=== PATIENT | female | born 1970 | race Hispanic/Latino ===

== ENCOUNTER 2024-08-02 21:18 | Inpatient (IN) | payer SELFPAY ==
[~2024-08-02] VITALS: Ht 160 cm; Wt 183.7 kg
--- NOTE | 2024-08-02 21:22 | NUR ---
REPORT TO DIAMOND GUSTAFSON
[2024-08-02 21:49] LABS: BASOPHILS # (AUTO) 0.03 K/uL (0.00-0.20); BASOPHILS % (AUTO) 0.4 % (0.0-5.0); EOSINOPHILS # (AUTO) 0.15 K/uL (0.00-0.70); EOSINOPHILS % (AUTO) 2.1 % (0.0-8.0); HEMATOCRIT 47.1 % (36-48); IMMATURE GRANULOCYTE ABSOLUTE 0.04 K/uL (0-1); LYMPHOCYTES % (AUTO) 14.3 % (21.0-51.0); MEAN CORPUSCULAR HEMOGLOBIN 25.3 pg (27.0-33.0); MEAN CORPUSCULAR HGB CONC 28.7 g/dL (32.0-36.0); MEAN CORPUSCULAR VOLUME 88.4 fL (79-99); MONOCYTES # (AUTO) 0.5 K/uL (0.1-1.0); MONOCYTES % (AUTO) 6.8 % (3.0-13.0); NEUTROPHILS # (AUTO) 5.5 K/uL (1.8-7.7); NEUTROPHILS % (AUTO) 75.8 % (40.0-77.0); NUCLEATED RED BLOOD CELLS 0.6 % (0.0-0.19); PLATELET COUNT (AUTO) 199 K/uL (130-400); RED BLOOD CELL COUNT(AUTO) 5.33 MIL/uL (4.00-5.50); RED CELL DISTRIBUTION WIDTH 17.7 % (11.0-15.5); WHITE BLOOD COUNT (AUTO) 7.2 K/uL (4.8-10.8)
[2024-08-02 22:01] LABS: CREATININE 0.6 mg/dL (0.5-1.0); POTASSIUM 4.8 mmol/L (3.5-5.1)
[2024-08-02 22:16] LABS: APPEARANCE,URINE CLEAR (CLEAR); BILIRUBIN,URINE NEGATIVE (NEGATIVE); COLOR,URINE LIGHT-YELLOW (YELLOW); GLUCOSE, URINE (UA) NEGATIVE (NEGATIVE); KETONES,URINE NEGATIVE (NEGATIVE); LEUKOCYTE ESTERASE ,URINE NEGATIVE Leu/uL (NEGATIVE); NITRATE,URINE NEGATIVE (NEGATIVE); OCCULT BLOOD,URINE NEGATIVE (NEGATIVE); PROTEIN,URINE NEGATIVE (NEGATIVE); UROBILINOGEN,URINE 0.2 mg/dL (0.2-1.0)
[2024-08-02 22:22] LABS: B-TYPE NATRIURETIC PEPTIDE 78 pg/mL (0-100)
[2024-08-02] MEDS ORDERED: NITROGLYCERIN 0.4 MG SL TAB SL PRN (22:30)
[2024-08-02 22:31] LABS: ADD UA MICROSCOPIC NO
--- NOTE | 2024-08-02 22:44 | HMCIMG ---
CHEST 1VW HISTORY: Chest pain COMPARISON: None FINDINGS: A frontal projection of the chest was obtained. There are bilateral pulmonary infiltrates suggestive of pulmonary vascular congestion with possible superimposed pneumonitis. The study is limited due to patient's large body habitus. The heart is borderline enlarged. Degenerative changes are seen. No evidence of aortic calcification is seen. IMPRESSION: 1. Bilateral pulmonary infiltrates are seen suggestive of pulmonary vascular congestion with possible superimposed pneumonitis. Limited study due to patient's large body habitus.
[2024-08-02 22:54] LABS: ABG BASE EXCESS 7.9 mmol/L (-2.0-3.0); ABG HCO3 37.2 mmol/L (21.0-28.0); ABG OXYGEN SATURATION 94.3 % (94.0-98.0); ABG PCO2 74 mmHg (32-45); ABG PH 7.317 (7.350-7.450); DEVICE COMMENT LR ROLI RN; PO2, ARTERIAL BG 79.8 mmHg (83.0-108.0); VENT MODE, BG 3LNC (ROOM AIR)
--- NOTE | 2024-08-02 22:54 | HP ---
History of Present Illness Reason for Visit: cp History of Present Illness Ms. Colón is a 53-year-old female that was seen and examined today on 08/02/24. Patient is a good historian of personal health however right now she is on a BiPAP and the following information was provided by her daughter Paula who is a limited historian of patient's past medical problems. Patient states that she came to the emergency department with a chief complaint of chest pain. Onset was today at 8:00 a.m. shortly after dropping her son off at school. Location is [facility]. Duration is on and off. Character is described as pressure. There was no alleviating factors. There was no aggravating factors. Patient reports associated shortness of breath. Today in the emergency department CBC unremarkable, urinalysis unremarkable. CO2 42. Chest x-ray shows bilateral infiltrates. Emergency room physician recommended that patient be admitted with a diagnosis of chest pain. Past Medical History ADDITIONAL PAST MEDICAL HISTORY: [Sleep apnea] SOCIAL HISTORY: [Patient smokes one cigarette daily. Patient denies alcohol use. Patient denies drug use. Patient lives with her daughter Paula Gillespie. Patient is typically independent of all her ADLs. Patient denies difficulty paying her bills. Patient has poor access to health care due to lack of health insurance.] SURGICAL HISTORY: [Denies] Review of Systems General: No Fever, No Chills, No Night Sweats, No Fatigue, No Malaise, No Appetite, No Other HEENT: No Head Aches, No Visual Changes, No Eye Pain, No Ear Pain, No Dysphasia, No Sinus Congestion, No Post Nasal Drip, No Sore Throat, No Other Pulmonary: Dyspnea; No Cough, No Pleuritic Chest Pain, No Other Cardiovascular: Chest Pain; No: Palpitations, Orthopnea, Paroxysmal Noc. Dyspnea, Edema, Lt Headedness, Other Gastrointestinal: No: Nausea, Vomiting, Abdominal Pain, Diarrhea, Constipation, Melena, Hematochezia, Other Genitourinary: No Dysuria, No Frequency, No Incontinence, No Hematuria, No Retention, No Other Musculoskeletal: No: other, neck pain, shoulder pain, arm pain, back pain, hand pain, leg pain, foot pain Skin: No Urticaria, No Rash, No Other Neurological: No: Weakness, Numbness, Incoordination, Change in speech, Confusion, Seizures, Other Allergies: Coded Allergies: No Known Allergies (Unverified Allergy, Unknown, 08/02/24) Exam Vital Signs Vital Signs Date Time Temp Pulse Resp B/P (MAP) Pulse Ox O2 Delivery O2 Flow Rate FiO2 08/02/24 22:26 75 16 155/88 93 Nasal Cannula* 2 28 08/02/24 21:19 97.5 General Appearance: Alert, Oriented X3, Cooperative, moderate distress HEENT: Atraumatic, EOMI, Mucous membr. moist/pink Respiratory: Other (Bilateral rhonchi, positive tachypnea, diminished air entry to bilateral lower lobes) Cardiovascular: Regular rate, Regular rhythm, Normal S1, Normal S2 Abdominal: Normal bowel sounds, Soft, No tenderness Extremities: No edema Skin: No significant lesion Neuro: Normal speech, Strength at 5/5 X4 ext, Sensation intact, Cranial nerves 3-12 NL Psych/Mental Status: Mental status NL, Mood NL, Thoughts/Content NL Assessment/Plan ASSESSMENT: [ Chest pain, POA Pneumonia, POA Hypercapnia, POA, suspected hypercapnic respiratory failure] PLAN: [ Admit patient to medical floor as inpatient status. Place patient on telemetry monitoring. Consult pulmonology Service for evaluation and recommendations. BiPAP per pulmonology settings. Supplemental oxygen. Administer aspirin 162 mg by mouth times 1 dose Continue aspirin 81 mg by mouth once daily Nitropaste 0.5 inches anterior chest wall every 8 hours Trend troponin every 6 hours x 3 sets Supplemental oxygen to maintain O2 saturation greater than 92% Consult cardiology if any elevation in troponin or troponin uptrending DuoNebs every 6 hours Patient received Solu-Medrol 120 mg IV times. Continue Solu-Medrol at 40 mg IV every8 hours. Check respiratory culture, follow up with the results Empiric antibiotic therapy with doxycycline and Rocephin Keep patient NPO while on BiPAP Check patient for flu, RSV, strep, COVID, follow up with the results GI prophylaxis, famotidine DVT prophylaxis, Lovenox ]ADVANCED CARE PLANNING 1. Which of the following were discussed? Hospice Care - Yes Therapeutic options - Yes Advance Directives - Yes- patient states she does not have any advance directives in place at this time, however her daughter can make decisions for her if she becomes unable. Other discussions - patient wishes to remain a full code at this time 2. Discussed with who? Patient 3. Voluntary nature of this service was explained to the patient? Yes 4. Amount of time spent - ___ 16 minutes ___ 5. Reviewed by Physician? (if this service was performed by NPP) Yes This document was generated in part using voice recognition software, occasional wrong word or sound alike substitutions may have occurred due to the inherent limitations of voice recognition software. Read the chart carefully and recognize using context, where the substitutions have occurred. Although every effort was made to edit the content, biometrics specialist and typing errors may occur ATTESTATION BY PHYSICIAN I have seen and examined the patient. I reviewed the documentation, medical decision making, and treatment plan as noted by the mid-level provider above. I agree with the findings and plan of care. EUGENIA VENEGAS [facility] Aug 02, 2024 22:54
[2024-08-02] MEDS: IpraTROPium/alBUTERol SULFATE 3 ML SOLUTION IH ONE (22:57)
[2024-08-02 22:58] VITALS: PULSE 74; RESP 20
[2024-08-02] MEDS: Solu-medROL 125MG VIAL IVP ONE (23:05)
[2024-08-02] MEDS: furoSEMIDE 40MG VIAL IV ONE (23:05)
[2024-08-02 23:08] VITALS: PULSE 75; RESP 27; O2SAT 94
--- NOTE | 2024-08-02 23:22 | ERN ---
General Chief Complaint: Chest Pain Stated Complaint: CHEST PAIN, SOB Time Seen by MD: 21:20 History of Present Illness Initial Comments 53-year-old female came in for chest pain and shortness for breath. Patient otherwise has no concerns. Allergies: Coded Allergies: No Known Allergies (Unverified Allergy, Unknown, 08/02/24) Past Medical History Past Medical History: Diabetes-Type II, High Cholesterol, Hypertension, Other Medical History Other: MORBID OBESITY, OBSTRUCTIVE SLEEP APNEA, DYSURIA Past Surgical History: None ROS Dictation CONSTITUTIONAL: Negative except for HPI HEAD/FACE: Negative except for HPI EENT: Negative except for HPI RESPIRATORY: Negative except for HPI GASTROINTESTINAL/ABDOMINAL: Negative except for HPI GENITOURINARY: Negative except for HPI MUSCULOSKELETAL: Negative except for HPI INTEGUMENTARY: Negative except for HPI NEUROLOGICAL/PSYCH: Negative except for HPI HEMATOLOGIC/LYMPHATIC: Negative except for HPI All Systems Negative, Except as noted above. 13 point review of systems assessed and all negative except for above. Physical Exam Physical Exam Dictation Vital Signs reviewed General Appearance: Alert, oriented x 3, no acute distress, well developed, nourished. Head and Face: non-traumatic. Eyes: PERRL, pink conjunctivas, eyelid no trauma, anterior chamber with arcus senilis. Ears: Pinnas intact and no signs of trauma or erythema ear canals clear and no discharge TM no erythema Nose: No discharge, no bleeding. Oropharynx: Mouth normal, tongue pink, pharynx clear,no erythema, tonsils no exudates, no abscesses noted, mucous membrane moist Neck: Supple, non-tender, no thyromegaly, no masses, no JVD, no bruits Breast:Deferred Chest:No tenderness, no crepitus, no paradoxical movement, no retractions Lungs:Clear, well-ventilated, symmetric, no rales, no wheezing, no rhonchi, no stridor, good breath sounds bilaterally Heart: Regular rate, regular rhythm, no murmur, no gallops Vascular: no peripheral edema, Abdomen: Soft, positive bowel sounds, nondistended, no guarding, nontender, no rebound, no masses no hepatomegaly, no splenomegaly, no Rebolledo's sign, no hernias. Rectal: Deferred Genital: Deferred Neurological: Normal speech, motor function intact, sensory function intact Musculoskeletal: Neck nontender, full range of motion, back nontender, full range of motion, Extremities: nontender, full range of motion Skin: Color pink, dry, no turgor, no rash, no lacerations, no abrasions, no contusions. Lymphatic: Deferred Results Laboratory and Microbiology Lab and Micro Result Laboratory Tests Test 08/02/24 21:41 08/02/24 22:01 08/02/24 22:15 08/02/24 22:52 White Blood Count 7.2 K/uL (4.8-10.8) Red Blood Count 5.33 MIL/uL (4.00-5.50) Hemoglobin 13.5 g/dL (12.0-16.0) Hematocrit 47.1 % (36-48) Mean Corpuscular Volume 88.4 fL (79-99) Mean Corpuscular Hemoglobin 25.3 pg (27.0-33.0) L Mean Corpuscular Hemoglobin Concent 28.7 g/dL (32.0-36.0) L Red Cell Distribution Width 17.7 % (11.0-15.5) H Platelet Count 199 K/uL (130-400) Mean Platelet Volume 10.4 fL (7.5-10.5) Immature Granulocyte % (Auto) 0.6 % (0-1) Neutrophils (%) (Auto) 75.8 % (40.0-77.0) Lymphocytes (%) (Auto) 14.3 % (21.0-51.0) L Monocytes (%) (Auto) 6.8 % (3.0-13.0) Eosinophils (%) (Auto) 2.1 % (0.0-8.0) Basophils (%) (Auto) 0.4 % (0.0-5.0) Neutrophils # (Auto) 5.5 K/uL (1.8-7.7) Lymphocytes # (Auto) 1.0 K/uL (1.0-4.8) Monocytes # (Auto) 0.5 K/uL (0.1-1.0) Eosinophils # (Auto) 0.15 K/uL (0.00-0.70) Basophils # (Auto) 0.03 K/uL (0.00-0.20) Absolute Immature Granulocyte (auto 0.04 K/uL (0-1) Nucleated Red Blood Cells 0.6 % (0.0-0.19) H Red Blood Cell Morphology See comments Sodium Level 140 mmol/L (136-145) Potassium Level 4.8 mmol/L (3.5-5.1) Chloride Level 100 mmol/L (101-111) L Carbon Dioxide Level 42 mmol/L (21-32) *H Blood Urea Nitrogen 15 mg/dL (7-18) Creatinine 0.6 mg/dL (0.5-1.0) Glomerular Filtration Rate Calc 107 mL/min (>90) Random Glucose 116 mg/dL (70-105) H Total Calcium 8.5 mg/dL (8.5-10.1) Total Creatine Kinase 39 U/L (21-232) Troponin I High Sensitivity 11 ng/L (4-50) B-Type Natriuretic Peptide 78 pg/mL (0-100) Urine Color LIGHT-YELLOW (YELLOW) Urine Appearance CLEAR (CLEAR) Urine pH 7.0 (5.0-8.0) Urine Specific Cora 1.011 (1.001-1.031) Urine Protein NEGATIVE mg/dL (NEGATIVE) Urine Glucose (UA) NEGATIVE mg/dL (NEGATIVE) Urine Ketones NEGATIVE mg/dL (NEGATIVE) Urine Occult Blood NEGATIVE (NEGATIVE) Urine Nitrate NEGATIVE (NEGATIVE) Urine Bilirubin NEGATIVE mg/dL (NEGATIVE) Urine Urobilinogen 0.2 mg/dL (0.2-1.0) Urine Leukocyte Esterase NEGATIVE Mauricio/uL Troponin I < 0.05 ng/mL (0.00-0.05) Blood Gas Specimen Type Arterial Arterial Blood pH 7.317 (7.350-7.450) Arterial Blood Partial Pressure CO2 74 mmHg (32-45) *H Arterial Blood Partial Pressure O2 79.8 mmHg (83.0-108.0) L Arterial Blood HCO3 37.2 mmol/L (21.0-28.0) H Arterial Blood Oxygen Saturation 94.3 % (94.0-98.0) Arterial Blood Base Excess 7.9 mmol/L (-2.0-3.0) H Blood Gas Temperature 37.0 CELSIUS (35.5-37.0) Blood Gas Flow-by 3.00 L/min (0.00-15.00) Blood Gas Vent Mode 3LNC (ROOM AIR) FiO2 32.0 % Blood Gas Specimen Comment SHIVAM EDWARDS RN MDM MDM: Differential diagnosis: Rationale: Tests considered and ordered secondary to shared decision making include: Previous outside records reviewed: Old ER visits. Risk of complication and/or morbidity or mortality of patient management: None Medications-Per medication reconciliation Need for hospitalization: Patient does meet criteria for hospitalization. Need for emergency major/minor surgery: No There are no social concerns with this patient. Prescription drug management Prescriptions will include symptomatic care Patient's prior external medical records from other ER visits were reviewed by me as indicated. Prior testing and results from previous visits were reviewed. Prior tests were taken into account with medical decision making and resource utilization, independent historian/historians were used to obtain complete medical history. I independently interpreted the test that were performed, results were reviewed by me and considered findings on radiology if ordered. Medical management and examination interpretation discussions were had by me with other qualified healthcare professionals as indicated for the patient's care. ED Course Orders Procedure Category Date Status Time Vital Signs Per CPOE 08/02/24 Transmitted Routine 21:20 B-Type Natriuretic LAB 08/02/24 Complete Peptide 21:20 Chest 1vw RAD 08/02/24 Resulted 21:20 12 Lead Ekg Tracing- EKG 08/02/24 Logged Technical 21:20 Oxygen By Nc/Pulse Ox CPOE 08/02/24 Transmitted 21:20 Maintain Iv CPOE 08/02/24 Transmitted 21:20 Iv Insertion CPOE 08/02/24 Transmitted 21:20 Cardiac Monitoring CPOE 08/02/24 Transmitted 21:20 Pulse Oximetry With CPOE 08/02/24 Transmitted Vs And Prn 21:20 Cbc With Differential LAB 08/02/24 Complete 21:20 Activity: Br W/Brp CPOE 08/02/24 Transmitted With Assist 21:20 Creatine Kinase, Total LAB 08/02/24 Complete 21:20 Troponin I High LAB 08/02/24 Complete Sensitivity 21:20 Urinalysis Profile LAB 08/02/24 Complete 21:20 Troponin Poc Order LAB 08/02/24 Complete Only 21:20 Bedside Troponin-I LAB.ER 08/02/24 In Process (Poc) 21:20 Basic Metabolic Panel LAB 08/02/24 Complete 21:20 Ipratropium/Albuterol PHA 08/02/24 Complete Neb (Duoneb) 22:30 Methylprednisolone PHA 08/02/24 Complete Succ 125mg (Solu-Medr 22:30 Nitroglycerin 0.4mg PHA 08/02/24 In Process Sl Tab (Nitrostat) 22:30 Furosemide 40mg Vial PHA 08/02/24 Complete (Lasix 40mg Vial) 22:30 Arterial Blood Gas RT 08/02/24 Transmitted 22:20 Arterial Blood Gas LAB 08/02/24 Complete 22:52 Admit Orders ADM 08/02/24 Transmitted 22:51 Pulmonology Consult CONPHYSVC 08/02/24 Transmitted 22:51 Current Medications Medications (Trade) Dose Ordered Sig/Kiet Route PRN Reason Start Time Stop Time Status Last Admin Dose Admin Albuterol (DUOneb) 1 UDVIAL ONCE ONCE IH 08/02/24 22:30 08/02/24 22:31 DC 08/02/24 22:57 Furosemide (LASix 40MG VIAL) 40 mg ONCE ONCE IV 08/02/24 22:30 08/02/24 22:31 DC 08/02/24 23:05 Methylprednisolone Sodium Succinate (Solu-medROL 125MG) 120 mg ONCE ONCE IVP 08/02/24 22:30 08/02/24 22:31 DC 08/02/24 23:05 Nitroglycerin (Nitrostat) 0.4 mg AD PRN SL CHEST PAIN 08/02/24 22:30 09/01/24 22:29 Vital Signs Date Time Temp Pulse Resp B/P (MAP) Pulse Ox O2 Delivery O2 Flow Rate FiO2 08/02/24 23:08 75 27 40 08/02/24 22:58 74 20 08/02/24 22:26 75 16 155/88 93 Nasal Cannula* 2 28 08/02/24 21:19 97.5 87 30 162/96 84 Room Air DX & DISP Disposition: Inpatient Departure Impression: Primary Impression: CHF exacerbation Condition: Stable Referrals: ROSINA WILSON M.D. (PCP) ADRIANA HUYNH MD Aug 02, 2024 23:22
[2024-08-02 23:41] VITALS: PULSE 80; RESP 30; O2SAT 95
[2024-08-02] MEDS ORDERED: morPHINE 2 MG SYG IVP PRN (23:45)
[2024-08-02] MEDS: LACTATED RINGERS 1000ML 1,000 ML IV SCH (23:50)
[2024-08-02] MEDS: ASPIRIN 81MG CHEW TAB PO ONE (23:59)
[2024-08-02] MEDS: DOXYCYCLINE 100MG+NS 250ML 250 ML IV SCH (23:59)
[2024-08-02] MEDS: NITROGLYCERIN 1GM OINT 1 INCH/1GM TD SCH (23:59)
[2024-08-02] MEDS: cefTRIAXone 1G VIAL IVPB SCH (23:59)
[2024-08-03] VITALS (8 sets, daily range): PULSE 79–100; RESP 19–32; O2SAT 94–97
[2024-08-03] MEDS ORDERED: ondanSETRON 4MG INJ IV PRN
[2024-08-03] MEDS ORDERED: hydrALAZine 20MG/ML VIAL IV PRN
[2024-08-03] MEDS: IpraTROPium/alBUTERol SULFATE 3 ML SOLUTION IH SCH (00:28)
[2024-08-03] MEDS: Solu-medROL 40MG VIAL IVP SCH (05:06)
[2024-08-03 05:16] LABS: RAPID GROUP A STREP negative (NEGATIVE)
[2024-08-03 05:22] LABS: SARS-CoV-2, RNA, NAAT NEGATIVE SARS CoV-2 (NEGATIVE)
[2024-08-03 05:26] LABS: INFLUENZA TYPE A Negative For Type A (NEGATIVE); INFLUENZA TYPE B Negative For Type B (NEGATIVE)
[2024-08-03] MEDS: SODIUM CHLORIDE 3% FOR INHALATION 4 ML/AMP VIAL.NEB IH ONE (06:58)
--- NOTE | 2024-08-03 07:00 | NUR ---
REPORT RECEIVED FROM SHI GUSTAFSON
[2024-08-03 07:15] LABS: BASOPHILS # (AUTO) 0.02 K/uL (0.00-0.20); BASOPHILS % (AUTO) 0.3 % (0.0-5.0); EOSINOPHILS # (AUTO) 0.01 K/uL (0.00-0.70); EOSINOPHILS % (AUTO) 0.1 % (0.0-8.0); HEMATOCRIT 49.1 % (36-48); IMMATURE GRANULOCYTE ABSOLUTE 0.12 K/uL (0-1); LYMPHOCYTES # (AUTO) 0.4 K/uL (1.0-4.8); MEAN CORPUSCULAR HEMOGLOBIN 25.2 pg (27.0-33.0); MEAN CORPUSCULAR HGB CONC 28.5 g/dL (32.0-36.0); MEAN CORPUSCULAR VOLUME 88.3 fL (79-99); MONOCYTES # (AUTO) 0.1 K/uL (0.1-1.0); MONOCYTES % (AUTO) 1.2 % (3.0-13.0); NEUTROPHILS # (AUTO) 6.7 K/uL (1.8-7.7); NEUTROPHILS % (AUTO) 91.7 % (40.0-77.0); NUCLEATED RED BLOOD CELLS 0.7 % (0.0-0.19); PLATELET COUNT (AUTO) 196 K/uL (130-400); RED BLOOD CELL COUNT(AUTO) 5.56 MIL/uL (4.00-5.50); RED CELL DISTRIBUTION WIDTH 17.4 % (11.0-15.5); WHITE BLOOD COUNT (AUTO) 7.3 K/uL (4.8-10.8)
--- NOTE | 2024-08-03 07:31 | EKG ---
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
[2024-08-03 07:47] LABS: CREATININE 0.6 mg/dL (0.5-1.0); PHOSPHORUS 4.6 mg/dL (2.5-4.9); POTASSIUM 4.8 mmol/L (3.5-5.1)
--- NOTE | 2024-08-03 08:10 | NUR ---
ASSESSMENT: PT FOUND AWAKE AND ALERT. THERE IS FAMILY AT THE BEDSIDE. SHE CURRENTLY HAS A BIPAP MACHINE. NO USE OF ACCESSORY MUSCLES OR STERNAL RETRACTIONS NOTED. CARDIO/PULMONARY: PT LSCTA TO UPPER LOBES AND VERY DIMINISHED BILATERALLY TO BASES. PT STATES SHE FEELS BETTER THAN WHEN SHE FIRST ARRIVED AND THAT THE BIPAP IS HELPING. OXYGEN SATS ON CURRENT SETTINGS ARE >94%. CAP REFILL LESS THAN 3 SECONDS. NO CYANOSIS NOTED TO NAIL BEDS ON HANDS/TOES. PT DENIES CP. S1S2 AUSCULTATED APICALLY. 2+ PULSES TO BILATERAL RADIAL/DORSALIS PEDAL SITES. 1+ EDEMA NOTED TO LE'S BILATERALLY. SINUS RHYTHM ON MANAGER LICENSING. NEURO: PT A/O X 3. PT ABLE TO FOLLOW SIMPLE/COMPLEX COMMANDS. [employer] 15 AND PT OTHERWISE NEUROLOGICALLY INTACT. GI/: PT MORBIDLY OBESE SO UNABLE TO ASSESS BOWEL SOUNDS ACCURATLY. + FOR DISTANT BOWEL SOUNDS. ABD SOFT TO PALPATION AND PT DENIES ANY CURRENT BOWEL ISSUES. PT CURRENTLY NPO D/T BIPAP AND RESPIATORY STATUS. UNABLE TO ACCESS ACCURATELY FOR BLADDER DISTENTION. PT CURRENTLY HAS A URINARY DEVICE (PURWICK). URINE IS YELLOW IN COLOR. MUSCULOSKELETAL/INTEGUMENTARY: PT CURRENTLY LIMITED ON HER RANGE OF MOTION D/T CURRENT CONDITION. SKIN INTACT OF WHAT IS VISIBLE. UNABLE TO ASSESS BENEATH "SKIRT"/SKIN FOLDS AT THIS TIME OR ASSESS HER BUTTOCKS/PERIANAL AREA.
--- NOTE | 2024-08-03 08:15 | NUR ---
BIPAP SETTINGS: IPAP 12 EPAP 6 RATE 18 FIO2 40%
--- NOTE | 2024-08-03 09:01 | PN ---
[facility] PROGRESS NOTE Date of Service: Aug 03, 2024 Time of Service: 08:53 SUBJECTIVE: Patient remains on BiPAP overnight. Pending repeat ABG REVIEW OF SYSTEMS CONSTITUTIONAL: Denies fevers, chills, or night sweats. No unintentional weight loss reported. NEUROLOGICAL: Denies headache, amaurosis fugax, motor weakness, sensory deficit, vertigo/spinning sensation, gait abnormalities, or tremors. ENT: No hearing loss, otalgia, otorrhea, rhinitis, rhinorrhea, hoarseness, or sore throat. CARDIOVASCULAR: Denies any exertional angina, dyspnea on exertion, orthopnea, paroxysmal nocturnal dyspnea, palpitations, life-threatening arrhythmias, claudication. PULMONARY: Denies any shortness of breath, cough, phlegm/sputum, hemoptysis, pleuritic chest pain. SLEEP: Denies morning headaches, daytime somnolence or napping. Denies difficulty falling asleep, staying asleep, waking from sleep. Denies knowledge of snoring. GASTROINTESTINAL: Denies any type of dysphagia to either liquids or solids. Denies nausea, vomiting, pyrosis, early satiety, abdominal pain, diarrhea, constipation, or changes in stool consistency or caliber. Denies coffee-ground emesis, hematemesis, hematochezia, or melanotic stools. GENITOURINARY: Denies frequency, urgency, nocturia, hematuria or incontinence (Storage/Irritative symptoms.) Low urinary stream, straining to void, urinary intermittency or hesitancy, splitting of the voiding stream, terminal dribbling. ENDOCRINOLOGIC: Denies polyuria, polydipsia, polyphagia or heat/cold intolerances. HEMATOLOGIC: Denies thrombophilia/previous clots, or coagulopathy/bleeding disorders. ONCOLOGIC: Denies personal history of malignancy. DERMATOLOGIC: Denies rashes or pruritus. PSYCHIATRIC: Denies any suicidal or homicidal ideation. Denies hallucinations. PHYSICAL EXAM GENERAL APPEARANCE: The patient is awake, alert, and oriented, in no acute cardiopulmonary distress. NEUROLOGICAL: Cranial nerves II-XII grossly intact. Motor is 5/5 in bilateral upper and lower extremities proximal to distal. No sensory deficits. HEENT: Face is symmetric. Pupils are equal and reactive. Extraocular movements are intact. NECK: Supple. No JVD. No thyromegaly. No submental, submandibular, pre- /postauricular, occipital or supraclavicular lymphadenopathy. CHEST: Normal chest expansion. No Telemetry. LUNGS: Absence of any rales, rhonchi or any wheezing. CARDIOVASCULAR: Regular. S1 and S2 normal. No appreciable rubs, murmurs or gallops. ABDOMEN: Soft, nontender, and nondistended. There is no rebound, voluntary guarding, or rigidity. : Deferred. No Palacio. EXTREMITIES: Non-edematous and not cyanotic. No clubbing. Good capillary refill. SKIN: No skin breakdown. Vital Signs (last 8hr) Date Time Temp Pulse Resp B/P (MAP) Pulse Ox O2 Delivery O2 Flow Rate FiO2 08/03/24 07:04 94 28 08/03/24 06:14 82 22 155/87 94 Bi-PAP+ 40 08/03/24 05:20 79 22 112/51 95 Bi-PAP+ 40 08/03/24 04:18 81 24 119/41 95 Bi-PAP+ 40 08/03/24 03:12 75 22 143/65 75 Bi-PAP+ 40 08/03/24 02:03 82 22 135/61 Bi-PAP+ 40 08/03/24 01:00 80 24 142/75 95 Bi-PAP+ 40 LABS: Laboratory: Test 08/03/24 06:34 08/03/24 04:50 08/02/24 22:52 08/02/24 22:15 Range/Units White Blood Count 7.3 4.8-10.8 K/uL Red Blood Count 5.56 H 4.00-5.50 MIL/uL Hemoglobin 14.0 12.0-16.0 g/dL Hematocrit 49.1 H 36-48 % Mean Corpuscular Volume 88.3 79-99 fL Mean Corpuscular Hemoglobin 25.2 L 27.0-33.0 pg Mean Corpuscular Hemoglobin Concent 28.5 L 32.0-36.0 g/dL Red Cell Distribution Width 17.4 H 11.0-15.5 % Platelet Count 196 130-400 K/uL Mean Platelet Volume 10.5 7.5-10.5 fL Immature Granulocyte % (Auto) 1.7 H 0-1 % Neutrophils (%) (Auto) 91.7 H 40.0-77.0 % Lymphocytes (%) (Auto) 5.0 L 21.0-51.0 % Monocytes (%) (Auto) 1.2 L 3.0-13.0 % Eosinophils (%) (Auto) 0.1 0.0-8.0 % Basophils (%) (Auto) 0.3 0.0-5.0 % Neutrophils # (Auto) 6.7 1.8-7.7 K/uL Lymphocytes # (Auto) 0.4 L 1.0-4.8 K/uL Monocytes # (Auto) 0.1 0.1-1.0 K/uL Eosinophils # (Auto) 0.01 0.00-0.70 K/uL Basophils # (Auto) 0.02 0.00-0.20 K/uL Absolute Immature Granulocyte (auto 0.12 0-1 K/uL Nucleated Red Blood Cells 0.7 H 0.0-0.19 % White Cell Morphology Comment See comments Sodium Level 137 136-145 mmol/L Potassium Level 4.8 3.5-5.1 mmol/L Chloride Level 97 L 101-111 mmol/L Carbon Dioxide Level 40 *H 21-32 mmol/L Blood Urea Nitrogen 12 7-18 mg/dL Creatinine 0.6 0.5-1.0 mg/dL Glomerular Filtration Rate Calc 107 >90 mL/min Random Glucose 124 H 70-105 mg/dL Total Calcium 8.6 8.5-10.1 mg/dL Phosphorus Level 4.6 2.5-4.9 mg/dL Magnesium Level 2.00 1.80-2.40 mg/dL Troponin I High Sensitivity 7 4-50 ng/L Influenza Type A Antigen Negative For Type A NEGATIVE Influenza Type B Antigen Negative For Type B NEGATIVE SARS-CoV-2, RNA, NAAT NEGATIVE SARS CoV-2 NEGATIVE Group A Streptococcus Rapid negative NEGATIVE Blood Gas Specimen Type Arterial Arterial Blood pH 7.317 L 7.350-7.450 Arterial Blood Partial Pressure CO2 74 *H 32-45 mmHg Arterial Blood Partial Pressure O2 79.8 L 83.0-108.0 mmHg Arterial Blood HCO3 37.2 H 21.0-28.0 mmol/L Arterial Blood Oxygen Saturation 94.3 94.0-98.0 % Arterial Blood Base Excess 7.9 H -2.0-3.0 mmol/L Blood Gas Temperature 37.0 35.5-37.0 CELSIUS Blood Gas Flow-by 3.00 0.00-15.00 L/min Blood Gas Vent Mode 3LNC ROOM AIR FiO2 32.0 % Blood Gas Specimen Comment LR GRACE GUSTAFSON Troponin I < 0.05 0.00-0.05 ng/mL Test 08/02/24 22:01 08/02/24 21:41 Range/Units Urine Color LIGHT-YELLOW YELLOW Urine Appearance CLEAR CLEAR Urine pH 7.0 5.0-8.0 Urine Specific [place] 1.011 1.001-1.031 Urine Protein NEGATIVE NEGATIVE mg/dL Urine Glucose (UA) NEGATIVE NEGATIVE mg/dL Urine Ketones NEGATIVE NEGATIVE mg/dL Urine Occult Blood NEGATIVE NEGATIVE Urine Nitrate NEGATIVE NEGATIVE Urine Bilirubin NEGATIVE NEGATIVE mg/dL Urine Urobilinogen 0.2 0.2-1.0 mg/dL Urine Leukocyte Esterase NEGATIVE NEGATIVE Mauricio/uL Red Blood Cell Morphology See comments Total Creatine Kinase 39 21-232 U/L B-Type Natriuretic Peptide 78 0-100 pg/mL Current Medications Medications (Trade) Dose Ordered Sig/Kiet Route PRN Reason Start Time Stop Time Status Last Admin Dose Admin Acetaminophen (TYLenol 325MG TAB) 650 mg Q6H PRN PO TEMPERATURE GREATER THAN 101.5 08/03/24 00:00 09/02/24 00:00 Albuterol (DUOneb) 1 UDVIAL [id number] IH 08/03/24 00:00 09/02/24 00:00 08/03/24 06:58 1 UDVIAL Aspirin (Aspirin 81mg Ec Tab) 81 mg DAILY PO 08/03/24 09:00 09/02/24 08:59 Ceftriaxone Sodium (ROCEphine 1G INJ) 1 gm Q24H IVPB 08/03/24 00:00 08/13/24 00:00 08/02/24 23:59 1 GM Doxycycline Hyclate 250 ml @ 125 mls/hr Q12H IV 08/03/24 00:00 08/13/24 00:00 08/02/24 23:59 125 MLS/HR Enoxaparin Sodium (Lovenox) 40 mg DAILY SQ 08/03/24 09:00 09/02/24 08:59 Famotidine (Pepcid 20mg Tab) 20 mg DAILY PO 08/03/24 09:00 09/02/24 08:59 Hydralazine HCl (APRESOLine 20MG INJ) 10 mg Q6H PRN IV For:SBP above 160;DBP above 90 08/03/24 00:00 09/02/24 00:00 Lactated Ringer's 1,000 ml @ 75 mls/hr [id number] IV 08/03/24 00:00 09/02/24 00:00 08/02/24 23:50 75 MLS/HR Methylprednisolone Sodium Succinate (Solu-medROL 40MG) 40 mg Q8H IVP 08/03/24 06:00 09/02/24 05:59 08/03/24 05:06 40 MG Morphine Sulfate (morPHINE 2MG SYG) 2 mg Q4H PRN IVP SEVERE PAIN (7-10) 08/02/24 23:45 08/09/24 23:44 Nitroglycerin (Nitroglycerin 1gm Oint) 0.5 inch Q8H TD 08/03/24 00:00 09/02/24 00:00 08/02/24 23:59 0.5 INCH Nitroglycerin (Nitrostat) 0.4 mg AD PRN SL CHEST PAIN 08/02/24 22:30 09/01/24 22:29 Ondansetron HCl (zoFRAN 4MG INJ) 4 mg Q6H PRN IV NAUSEA/VOMITING 08/03/24 00:00 09/02/24 00:00 DIAGNOSTICS / RADIOLOGY: [ ] ASSESSMENT: Acute on chronic hypercarbic/hypoxemic respiratory failure, POA Obesity hypoventilation syndrome, POA Chest pain, POA Pneumonia, POA PLAN: Continue Ceftriaxone and doxy Trend WBCs Follow-up cultures continue BiPAP now Repeat ABG O2 nasal cannula as needed we will consider consulting Pulmonary Monitor blood pressure NPO while on BiPAP No need for GI prophylaxis No need for IV fluids Trend a.m. BMP Replete electrolytes as necessary DVT prophylaxis with Lovenox Trend a.m. CBC Full code Case was discussed with patient's nurse at bedside Attention time greater than 30 minutes MERCY SANTACRUZ IV, MD Aug 03, 2024 09:01
[2024-08-03 09:56] LABS: ABG BASE EXCESS 3.6 mmol/L (-2.0-3.0); ABG HCO3 32.7 mmol/L (21.0-28.0); ABG PCO2 71 mmHg (32-45); ABG PH 7.283 (7.350-7.450); DEVICE COMMENT RBJESSE; PO2, ARTERIAL BG 66.3 mmHg (83.0-108.0); VENT MODE, BG BIPAP 12-6 (ROOM AIR)
[2024-08-03] MEDS: FAMOTIDINE 20MG TAB PO SCH (10:12)
[2024-08-03] MEDS: ASPIRIN 81 MG EC TAB PO SCH (10:12)
[2024-08-03] MEDS: ENOXAPARIN SODIUM 40 MG/0.4 ML SYRINGE SQ SCH (10:13)
--- NOTE | 2024-08-03 10:17 | NUR ---
ABG RESUTLS: I SENT DR LUU THE ABG RESUTLS AND HE ASKED FOR BIPAP CHANGES
--- NOTE | 2024-08-03 10:17 | NUR ---
BIPAP CHANGES: WE ARE TO INCREASE RATE FROM 18 TO 22. [facility] MACHINE OPERATOR WAS INFORMED.
--- NOTE | 2024-08-03 14:42 | NUR ---
DCP Patient on BiPap and Polish speaking. Rivera Gillespie, Son [phone] provided information for patient. Patient lives in a mobile home with a four steps at entrance and a tub. Patient is unemployed, remains independent and drives self. States able to complete ADL's on her own; uses a shopping scooter while shopping. Denies home health services, home care providers or dialysis. PCP - Racheal Chatman MD Pharmacy - [facility]. Upon discharge, Paula Gillespie, Daughter [phone] and family will assist with care as needed. Provided Community Resources List. Addendum: 08/03/24 at 1450 by MOHAN SARABIA RN CM Amended: Links added.
--- NOTE | 2024-08-03 19:16 | NUR ---
trans care to [facility]
--- NOTE | 2024-08-03 23:04 | CONS ---
[facility] CONSULTATION NOTE Date Patient Seen: Aug 03, 2024 Time of Visit: 22:58 Supervising Physician: TASNEEM DOWD MD Reason for Consultation: DYSPNEA Primary Care Physician: [ ] Outpatient Specialists: [ ] Inpatient Consults: [ ] PROBLEM LIST: Acute hypercarbic, hypoxemic respiratory failure on admission Severe morbid obesity, BMI 85.8 Obesity hypoventilation syndrome Obstructive sleep apnea Tobacco use disorder Chest pain on admission Hypertension HPI: 53 years old woman presents to the ER complaining of chest pain of acute onset Denies diaphoresis, denies radiating pain to the neck or shoulders Patient also complaining of cough, congestion and dyspnea on exertion On arrival, patient presented with tachypnea and hypoxemia Marked hypercarbia and had to be placed on BiPAP She is feeling better now, but remains on BiPAP while evaluated in the ED no cough, no congestion no fevers, no chills complains of fatigue and weakness PAST MEDICAL HX: Severe morbid obesity, hypertension, OHS, ANGELO PAST SURGICAL HX: noncontributory SOCIAL HISTORY: Tobacco use disorder Coded Allergies: No Known Allergies (Unverified Allergy, Unknown, 08/02/24) REVIEW OF SYSTEMS: 12 point ROS reviewed with patient. Pertinent positives mentioned above. Otherwise negative. PHYSICAL EXAM: GENERAL: alert, weak, awake oriented x 3 HEENT: EOMI, Sclera non icteric, moist mucosa NECK: Supple, no JVD, trachea midline LUNGS: expiratory wheezing, crackles and decreased air entry bilaterally HEART: Regular rate and rhythm. Normal S1 and S2, without murmurs ABD: Abdomen soft, nontender. Bowel sounds present EXT: No clubbing cyanosis or edema NEURO: Alert and oriented to person, follows commands Vital Signs (last 8hr) Date Time Temp Pulse Resp B/P (MAP) Pulse Ox O2 Delivery O2 Flow Rate FiO2 08/03/24 21:49 87 22 127/74 96 Bi-PAP+ 40 08/03/24 21:46 83 27 40 08/03/24 19:29 81 30 08/03/24 19:25 98.2 96 28 131/78 96 Bi-PAP+ 40 08/03/24 18:20 98.8 89 22 131/78 92 Bi-PAP+ 40 08/03/24 18:00 81 30 40 08/03/24 16:29 99.0 84 22 141/75 94 Bi-PAP+ 40 LABS: Hematology Labs: Test 08/03/24 06:34 08/02/24 21:41 Range/Units White Blood Count 7.3 4.8-10.8 K/uL Red Blood Count 5.56 H 4.00-5.50 MIL/uL Hemoglobin 14.0 12.0-16.0 g/dL Hematocrit 49.1 H 36-48 % Mean Corpuscular Volume 88.3 79-99 fL Mean Corpuscular Hemoglobin 25.2 L 27.0-33.0 pg Mean Corpuscular Hemoglobin Concent 28.5 L 32.0-36.0 g/dL Red Cell Distribution Width 17.4 H 11.0-15.5 % Platelet Count 196 130-400 K/uL Mean Platelet Volume 10.5 7.5-10.5 fL Immature Granulocyte % (Auto) 1.7 H 0-1 % Neutrophils (%) (Auto) 91.7 H 40.0-77.0 % Lymphocytes (%) (Auto) 5.0 L 21.0-51.0 % Monocytes (%) (Auto) 1.2 L 3.0-13.0 % Eosinophils (%) (Auto) 0.1 0.0-8.0 % Basophils (%) (Auto) 0.3 0.0-5.0 % Neutrophils # (Auto) 6.7 1.8-7.7 K/uL Lymphocytes # (Auto) 0.4 L 1.0-4.8 K/uL Monocytes # (Auto) 0.1 0.1-1.0 K/uL Eosinophils # (Auto) 0.01 0.00-0.70 K/uL Basophils # (Auto) 0.02 0.00-0.20 K/uL Absolute Immature Granulocyte (auto 0.12 0-1 K/uL Nucleated Red Blood Cells 0.7 H 0.0-0.19 % White Cell Morphology Comment See comments Red Blood Cell Morphology See comments Chemistry Labs: Test 08/03/24 16:08 08/03/24 10:38 08/03/24 06:34 08/02/24 22:15 Range/Units Troponin I High Sensitivity 6 4-50 ng/L Lactic Acid Level 1.0 0.8-2.5 mmol/L Sodium Level 137 136-145 mmol/L Potassium Level 4.8 3.5-5.1 mmol/L Chloride Level 97 L 101-111 mmol/L Carbon Dioxide Level 40 *H 21-32 mmol/L Blood Urea Nitrogen 12 7-18 mg/dL Creatinine 0.6 0.5-1.0 mg/dL Glomerular Filtration Rate Calc 107 >90 mL/min Random Glucose 124 H 70-105 mg/dL Total Calcium 8.6 8.5-10.1 mg/dL Phosphorus Level 4.6 2.5-4.9 mg/dL Magnesium Level 2.00 1.80-2.40 mg/dL Troponin I < 0.05 0.00-0.05 ng/mL Test 08/02/24 21:41 Range/Units Total Creatine Kinase 39 21-232 U/L B-Type Natriuretic Peptide 78 0-100 pg/mL DIAGNOSTICS / RADIOLOGY RESULTS: Left lower lobe atelectasis with air bronchogram of the left lung base cons istent with pneumonia. Small left effusion. PLAN - continue on BiPAP - continue on oxygen - keep O2 saturation at 88% or higher - IV steroids - IV antibiotics - Aerosol nebulizer treatments NEURO: Minimize central acting medications as possible. Maintain fall precautions, adequate lighting during the day PULMONARY: Supplemental 02 as needed. Maintain aspiration precautions at all times CARDIOVASCULAR: Follow hemodynamics. Vital signs per facility protocol GI & NUTRITION: Continue with nutritional support. Continue stool softeners and laxatives as needed. KIDNEYS & ELECTROLYTES: Strict monitoring of intake, output and overall fluid balance. Avoid nephrotoxic medications to the extent possible. Medications to be dosed according to renal function. Monitor electrolytes and replace as needed ENDOCRINE: Maintain blood glucose between 100-180 at all times. Hypoglycemia protocol in place INFECTIOUS DISEASE: Trend temperature, WBC and procalcitonin level Follow cultures, deescalate antibiotics as soon as possible. Panculture if new onset fever ONCOLOGY/HEMATOLOGY/COAGULATION: Monitor for s/s of bleeding Monitor hemoglobin, coagulation studies as needed SKIN: Pressure ulcer prevention per facility protocol Specialty mattress ORTHO/REHAB: Continue PT/OT Prophylaxis: Continue GI and DVT prophylaxis Code Status: Full Resuscitation Disposition: TBD Other: Total patient care time exceeds 35 minutes excluding all procedures. Consult note scribed by Oli Carrizales on my behalf and I can attest to the accuracy of the note. I personally scribed for TASNEEM DOWD MD ([email or web address]) on 08/03/24 at 23:04. Electronically submitted by Oli Carrizales ([email or web address]). TASNEEM DOWD MD Aug 03, 2024 23:04
[2024-08-04] VITALS (10 sets, daily range): BP systolic 113–130; BP diastolic 71–77; PULSE 71–88; RESP 18–25; TEMP 97.5–98.8; O2SAT 94–96
[2024-08-04 12:17] LABS: ABG BASE EXCESS 11.6 mmol/L (-2.0-3.0); ABG HCO3 39.1 mmol/L (21.0-28.0); ABG OXYGEN SATURATION 81.9 % (94.0-98.0); ABG PCO2 65 mmHg (32-45); ABG PH 7.401 (7.350-7.450); CARBON MONOXIDE 1.7 % (0.5-1.5); DEVICE COMMENT RR RN; HHb 17.8; VENT MODE, BG 4LNC (ROOM AIR)
[2024-08-04] MEDS: SODIUM CHLORIDE 3% FOR INHALATION 4 ML/AMP VIAL.NEB IH ONE ×2 (14:10→19:16)
--- NOTE | 2024-08-04 14:28 | PN ---
[facility] PROGRESS NOTE Date of Service: Aug 04, 2024 Time of Service: 14:16 SUBJECTIVE: Has been transitioned to nasal cannula. She was saturating well. No new complaints or concerns. No acute events reported overnight. REVIEW OF SYSTEMS CONSTITUTIONAL: Denies fevers, chills, or night sweats. No unintentional weight loss reported. NEUROLOGICAL: Denies headache, amaurosis fugax, motor weakness, sensory deficit, vertigo/spinning sensation, gait abnormalities, or tremors. ENT: No hearing loss, otalgia, otorrhea, rhinitis, rhinorrhea, hoarseness, or sore throat. CARDIOVASCULAR: Denies any exertional angina, dyspnea on exertion, orthopnea, paroxysmal nocturnal dyspnea, palpitations, life-threatening arrhythmias, claudication. PULMONARY: Denies any shortness of breath, cough, phlegm/sputum, hemoptysis, pleuritic chest pain. SLEEP: Denies morning headaches, daytime somnolence or napping. Denies difficulty falling asleep, staying asleep, waking from sleep. Denies knowledge of snoring. GASTROINTESTINAL: Denies any type of dysphagia to either liquids or solids. Denies nausea, vomiting, pyrosis, early satiety, abdominal pain, diarrhea, constipation, or changes in stool consistency or caliber. Denies coffee-ground emesis, hematemesis, hematochezia, or melanotic stools. GENITOURINARY: Denies frequency, urgency, nocturia, hematuria or incontinence (Storage/Irritative symptoms.) Low urinary stream, straining to void, urinary intermittency or hesitancy, splitting of the voiding stream, terminal dribbling. ENDOCRINOLOGIC: Denies polyuria, polydipsia, polyphagia or heat/cold intolerances. HEMATOLOGIC: Denies thrombophilia/previous clots, or coagulopathy/bleeding disorders. ONCOLOGIC: Denies personal history of malignancy. DERMATOLOGIC: Denies rashes or pruritus. PSYCHIATRIC: Denies any suicidal or homicidal ideation. Denies hallucinations. PHYSICAL EXAM GENERAL APPEARANCE: The patient is awake, alert, and oriented, in no acute cardiopulmonary distress. NEUROLOGICAL: Cranial nerves II-XII grossly intact. Motor is 5/5 in bilateral upper and lower extremities proximal to distal. No sensory deficits. HEENT: Face is symmetric. Pupils are equal and reactive. Extraocular movements are intact. NECK: Supple. No JVD. No thyromegaly. No submental, submandibular, pre- /postauricular, occipital or supraclavicular lymphadenopathy. CHEST: Normal chest expansion. No Telemetry. LUNGS: Absence of any rales, rhonchi or any wheezing. CARDIOVASCULAR: Regular. S1 and S2 normal. No appreciable rubs, murmurs or gallops. ABDOMEN: Soft, nontender, and nondistended. There is no rebound, voluntary guarding, or rigidity. : Deferred. No Palacio. EXTREMITIES: Non-edematous and not cyanotic. No clubbing. Good capillary refill. SKIN: No skin breakdown. Vital Signs (last 8hr) Date Time Temp Pulse Resp B/P (MAP) Pulse Ox O2 Delivery O2 Flow Rate FiO2 08/04/24 11:37 98.1 84 18 126/69 95 Nasal Cannula* 3 32 08/04/24 11:22 85 19 08/04/24 08:00 97.3 80 20 134/77 97 Room Air* 0 21 08/04/24 07:00 77 25 40 08/04/24 07:00 88 19 08/04/24 06:17 79 24 140/80 96 Bi-PAP+ 40 LABS: Laboratory: Test 08/04/24 12:15 08/03/24 16:08 08/03/24 10:38 08/03/24 09:54 Range/Units Blood Gas Specimen Type Arterial Arterial Blood pH 7.401 7.350-7.450 Arterial Blood Partial Pressure CO2 65 *H 32-45 mmHg Arterial Blood Partial Pressure O2 45.0 *L 83.0-108.0 mmHg Arterial Blood HCO3 39.1 H 21.0-28.0 mmol/L Arterial Blood Oxygen Saturation 81.9 L 94.0-98.0 % Arterial Blood Base Excess 11.6 H -2.0-3.0 mmol/L Hemoglobin (Blood Gas) 13.7 12.0-16.0 g/dL Sodium (Blood Gas) 140 136-145 MMOL/L Bedside Potassium (Blood Gas) 4.1 3.4-4.5 MMOL/L Bedside Chloride (Blood Gas) 94 L 98-107 MMOL/L Bedside Glucose (Blood Gas) 105 H 65-95 MG/DL Bedside Ionized Calcium (Blood Gas) 1.17 1.15-1.33 MMOL/L Bedside Lactic Acid (Blood Gas) 1.03 H 0.36-0.75 MMOL/L Blood Gas Temperature 37.0 35.5-37.0 CELSIUS Blood Gas Flow-by 4.00 0.00-15.00 L/min Blood Gas Vent Mode 4LNC ROOM AIR FiO2 36.0 % Blood Gas Specimen Comment RR RN Troponin I High Sensitivity 6 4-50 ng/L Lactic Acid Level 1.0 0.8-2.5 mmol/L Blood Gas Respiration Rate 18.0 min. Test 08/03/24 06:34 08/03/24 04:50 08/02/24 22:15 08/02/24 22:01 Range/Units White Blood Count 7.3 4.8-10.8 K/uL Red Blood Count 5.56 H 4.00-5.50 MIL/uL Hemoglobin 14.0 12.0-16.0 g/dL Hematocrit 49.1 H 36-48 % Mean Corpuscular Volume 88.3 79-99 fL Mean Corpuscular Hemoglobin 25.2 L 27.0-33.0 pg Mean Corpuscular Hemoglobin Concent 28.5 L 32.0-36.0 g/dL Red Cell Distribution Width 17.4 H 11.0-15.5 % Platelet Count 196 130-400 K/uL Mean Platelet Volume 10.5 7.5-10.5 fL Immature Granulocyte % (Auto) 1.7 H 0-1 % Neutrophils (%) (Auto) 91.7 H 40.0-77.0 % Lymphocytes (%) (Auto) 5.0 L 21.0-51.0 % Monocytes (%) (Auto) 1.2 L 3.0-13.0 % Eosinophils (%) (Auto) 0.1 0.0-8.0 % Basophils (%) (Auto) 0.3 0.0-5.0 % Neutrophils # (Auto) 6.7 1.8-7.7 K/uL Lymphocytes # (Auto) 0.4 L 1.0-4.8 K/uL Monocytes # (Auto) 0.1 0.1-1.0 K/uL Eosinophils # (Auto) 0.01 0.00-0.70 K/uL Basophils # (Auto) 0.02 0.00-0.20 K/uL Absolute Immature Granulocyte (auto 0.12 0-1 K/uL Nucleated Red Blood Cells 0.7 H 0.0-0.19 % White Cell Morphology Comment See comments Sodium Level 137 136-145 mmol/L Potassium Level 4.8 3.5-5.1 mmol/L Chloride Level 97 L 101-111 mmol/L Carbon Dioxide Level 40 *H 21-32 mmol/L Blood Urea Nitrogen 12 7-18 mg/dL Creatinine 0.6 0.5-1.0 mg/dL Glomerular Filtration Rate Calc 107 >90 mL/min Random Glucose 124 H 70-105 mg/dL Total Calcium 8.6 8.5-10.1 mg/dL Phosphorus Level 4.6 2.5-4.9 mg/dL Magnesium Level 2.00 1.80-2.40 mg/dL Influenza Type A Antigen Negative For Type A NEGATIVE Influenza Type B Antigen Negative For Type B NEGATIVE SARS-CoV-2, RNA, NAAT NEGATIVE SARS CoV-2 NEGATIVE Group A Streptococcus Rapid negative NEGATIVE Troponin I < 0.05 0.00-0.05 ng/mL Urine Color LIGHT-YELLOW YELLOW Urine Appearance CLEAR CLEAR Urine pH 7.0 5.0-8.0 Urine Specific [place] 1.011 1.001-1.031 Urine Protein NEGATIVE NEGATIVE mg/dL Urine Glucose (UA) NEGATIVE NEGATIVE mg/dL Urine Ketones NEGATIVE NEGATIVE mg/dL Urine Occult Blood NEGATIVE NEGATIVE Urine Nitrate NEGATIVE NEGATIVE Urine Bilirubin NEGATIVE NEGATIVE mg/dL Urine Urobilinogen 0.2 0.2-1.0 mg/dL Urine Leukocyte Esterase NEGATIVE NEGATIVE Mauricio/uL Test 08/02/24 21:41 Range/Units Red Blood Cell Morphology See comments Total Creatine Kinase 39 21-232 U/L B-Type Natriuretic Peptide 78 0-100 pg/mL Current Medications Medications (Trade) Dose Ordered Sig/Kiet Route PRN Reason Start Time Stop Time Status Last Admin Dose Admin Acetaminophen (TYLenol 325MG TAB) 650 mg Q6H PRN PO TEMPERATURE GREATER THAN 101.5 08/03/24 00:00 09/02/24 00:00 Albuterol (DUOneb) 1 UDVIAL [id number] IH 08/03/24 00:00 09/02/24 00:00 08/04/24 14:07 1 UDVIAL Aspirin (Aspirin 81mg Ec Tab) 81 mg DAILY PO 08/03/24 09:00 09/02/24 08:59 08/04/24 08:42 81 MG Ceftriaxone Sodium (ROCEphine 1G INJ) 1 gm Q24H IVPB 08/03/24 00:00 08/13/24 00:00 08/03/24 23:08 1 GM Doxycycline Hyclate 250 ml @ 125 mls/hr Q12H IV 08/03/24 00:00 08/13/24 00:00 08/04/24 11:50 125 MLS/HR Enoxaparin Sodium (Lovenox) 40 mg DAILY SQ 08/03/24 09:00 09/02/24 08:59 08/04/24 08:42 40 MG Famotidine (Pepcid 20mg Tab) 20 mg DAILY PO 08/03/24 09:00 09/02/24 08:59 08/04/24 08:43 20 MG Hydralazine HCl (APRESOLine 20MG INJ) 10 mg Q6H PRN IV For:SBP above 160;DBP above 90 08/03/24 00:00 09/02/24 00:00 Lactated Ringer's 1,000 ml @ 75 mls/hr [id number] IV 08/03/24 00:00 09/02/24 00:00 08/04/24 01:43 75 MLS/HR Methylprednisolone Sodium Succinate (Solu-medROL 40MG) 40 mg Q8H IVP 08/03/24 06:00 09/02/24 05:59 08/04/24 13:36 40 MG Morphine Sulfate (morPHINE 2MG SYG) 2 mg Q4H PRN IVP SEVERE PAIN (7-10) 08/02/24 23:45 08/09/24 23:44 Nitroglycerin (Nitroglycerin 1gm Oint) 0.5 inch Q8H TD 08/03/24 00:00 09/02/24 00:00 08/04/24 08:42 0.5 INCH Nitroglycerin (Nitrostat) 0.4 mg AD PRN SL CHEST PAIN 08/02/24 22:30 09/01/24 22:29 Ondansetron HCl (zoFRAN 4MG INJ) 4 mg Q6H PRN IV NAUSEA/VOMITING 08/03/24 00:00 09/02/24 00:00 DIAGNOSTICS / RADIOLOGY: [ ] ASSESSMENT: Acute on chronic hypercarbic/hypoxemic respiratory failure, POA Obesity hypoventilation syndrome, POA Obstructive sleep apnea, POA Chest pain, POA Pneumonia possibly due to Gram-negative and or Gram positive bacteria, POA PLAN: Continue Ceftriaxone and doxy Trend WBCs Follow-up cultures O2 nasal cannula as needed Follow up with Pulmonary -IV antibiotics -IV steroids continue aspirin Monitor blood pressure Heart healthy diet GI prophylaxis with famotidine Discontinue IV fluids Trend a.m. BMP Replete electrolytes as necessary DVT prophylaxis with Lovenox Trend a.m. CBC Full code Case was discussed with patient's nurse at bedside Attention time greater than 30 minutes MERCY SANTACRUZ IV, MD Aug 04, 2024 14:28
[2024-08-05] VITALS (14 sets, daily range): BP systolic 114–129; BP diastolic 65–78; PULSE 73–81; RESP 18–27; TEMP 97.5–98.6; O2SAT 94–95
[2024-08-05] MEDS: SODIUM CHLORIDE 3% FOR INHALATION 4 ML/AMP VIAL.NEB IH ONE (06:21)
--- NOTE | 2024-08-05 16:20 | PN ---
[facility] PROGRESS NOTE Date of Service: Aug 05, 2024 Time of Service: 16:20 SUBJECTIVE: Has been transitioned to nasal cannula. She was saturating well. No new complaints or concerns. No acute events reported overnight. 08/05/24 patient was seen and examined. Case discussed with the RN. She denies any chest pain no shortness a breath. No acute overnight events REVIEW OF SYSTEMS CONSTITUTIONAL: Denies fevers, chills, or night sweats. No unintentional weight loss reported. NEUROLOGICAL: Denies headache, amaurosis fugax, motor weakness, sensory deficit, vertigo/spinning sensation, gait abnormalities, or tremors. ENT: No hearing loss, otalgia, otorrhea, rhinitis, rhinorrhea, hoarseness, or sore throat. CARDIOVASCULAR: Denies any exertional angina, dyspnea on exertion, orthopnea, paroxysmal nocturnal dyspnea, palpitations, life-threatening arrhythmias, claudication. PULMONARY: Denies any shortness of breath, cough, phlegm/sputum, hemoptysis, pleuritic chest pain. SLEEP: Denies morning headaches, daytime somnolence or napping. Denies difficulty falling asleep, staying asleep, waking from sleep. Denies knowledge of snoring. GASTROINTESTINAL: Denies any type of dysphagia to either liquids or solids. Denies nausea, vomiting, pyrosis, early satiety, abdominal pain, diarrhea, constipation, or changes in stool consistency or caliber. Denies coffee-ground emesis, hematemesis, hematochezia, or melanotic stools. GENITOURINARY: Denies frequency, urgency, nocturia, hematuria or incontinence (Storage/Irritative symptoms.) Low urinary stream, straining to void, urinary intermittency or hesitancy, splitting of the voiding stream, terminal dribbling. ENDOCRINOLOGIC: Denies polyuria, polydipsia, polyphagia or heat/cold intolerances. HEMATOLOGIC: Denies thrombophilia/previous clots, or coagulopathy/bleeding disorders. ONCOLOGIC: Denies personal history of malignancy. DERMATOLOGIC: Denies rashes or pruritus. PSYCHIATRIC: Denies any suicidal or homicidal ideation. Denies hallucinations. PHYSICAL EXAM GENERAL APPEARANCE: The patient is awake, alert, and oriented, in no acute cardiopulmonary distress. NEUROLOGICAL: Cranial nerves II-XII grossly intact. Motor is 5/5 in bilateral upper and lower extremities proximal to distal. No sensory deficits. HEENT: Face is symmetric. Pupils are equal and reactive. Extraocular movements are intact. NECK: Supple. No JVD. No thyromegaly. No submental, submandibular, pre- /postauricular, occipital or supraclavicular lymphadenopathy. CHEST: Normal chest expansion. No Telemetry. LUNGS: Absence of any rales, rhonchi or any wheezing. CARDIOVASCULAR: Regular. S1 and S2 normal. No appreciable rubs, murmurs or gallops. ABDOMEN: Soft, nontender, and nondistended. There is no rebound, voluntary guarding, or rigidity. : Deferred. No Palacio. EXTREMITIES: Non-edematous and not cyanotic. No clubbing. Good capillary refill. SKIN: No skin breakdown. Vital Signs (last 8hr) Date Time Temp Pulse Resp B/P (MAP) Pulse Ox O2 Delivery O2 Flow Rate FiO2 08/05/24 16:14 97.9 80 18 118/65 98 Nasal Cannula 2.0 08/05/24 12:19 76 18 N/Cannula Low lpm 4.0 36 08/05/24 11:57 98.6 81 20 114/65 99 Venti Mask 08/05/24 11:03 80 18 LABS: Laboratory: Test 08/04/24 12:15 Range/Units Blood Gas Specimen Type Arterial Arterial Blood pH 7.401 7.350-7.450 Arterial Blood Partial Pressure CO2 65 *H 32-45 mmHg Arterial Blood Partial Pressure O2 45.0 *L 83.0-108.0 mmHg Arterial Blood HCO3 39.1 H 21.0-28.0 mmol/L Arterial Blood Oxygen Saturation 81.9 L 94.0-98.0 % Arterial Blood Base Excess 11.6 H -2.0-3.0 mmol/L Hemoglobin (Blood Gas) 13.7 12.0-16.0 g/dL Sodium (Blood Gas) 140 136-145 MMOL/L Bedside Potassium (Blood Gas) 4.1 3.4-4.5 MMOL/L Bedside Chloride (Blood Gas) 94 L 98-107 MMOL/L Bedside Glucose (Blood Gas) 105 H 65-95 MG/DL Bedside Ionized Calcium (Blood Gas) 1.17 1.15-1.33 MMOL/L Bedside Lactic Acid (Blood Gas) 1.03 H 0.36-0.75 MMOL/L Blood Gas Temperature 37.0 35.5-37.0 CELSIUS Blood Gas Flow-by 4.00 0.00-15.00 L/min Blood Gas Vent Mode 4LNC ROOM AIR FiO2 36.0 % Blood Gas Specimen Comment RR RN Current Medications Medications (Trade) Dose Ordered Sig/Kiet Route PRN Reason Start Time Stop Time Status Last Admin Dose Admin Acetaminophen (TYLenol 325MG TAB) 650 mg Q6H PRN PO TEMPERATURE GREATER THAN 101.5 08/03/24 00:00 09/02/24 00:00 Albuterol (DUOneb) 1 UDVIAL [id number] IH 08/03/24 00:00 09/02/24 00:00 08/05/24 11:03 1 UDVIAL Aspirin (Aspirin 81mg Ec Tab) 81 mg DAILY PO 08/03/24 09:00 09/02/24 08:59 08/05/24 08:29 81 MG Ceftriaxone Sodium (ROCEphine 1G INJ) 1 gm Q24H IVPB 08/03/24 00:00 08/13/24 00:00 08/04/24 23:38 1 GM Doxycycline Hyclate 250 ml @ 125 mls/hr Q12H IV 08/03/24 00:00 08/13/24 00:00 08/05/24 11:32 125 MLS/HR Enoxaparin Sodium (Lovenox) 40 mg DAILY SQ 08/03/24 09:00 09/02/24 08:59 08/05/24 08:34 40 MG Famotidine (Pepcid 20mg Tab) 20 mg DAILY PO 08/03/24 09:00 09/02/24 08:59 08/05/24 08:29 20 MG Hydralazine HCl (APRESOLine 20MG INJ) 10 mg Q6H PRN IV For:SBP above 160;DBP above 90 08/03/24 00:00 09/02/24 00:00 Lactated Ringer's 1,000 ml @ 75 mls/hr [id number] IV 08/03/24 00:00 08/04/24 14:28 DC 08/04/24 01:43 75 MLS/HR Methylprednisolone Sodium Succinate (Solu-medROL 40MG) 40 mg Q8H IVP 08/03/24 06:00 09/02/24 05:59 08/05/24 15:07 40 MG Morphine Sulfate (morPHINE 2MG SYG) 2 mg Q4H PRN IVP SEVERE PAIN (7-10) 08/02/24 23:45 08/09/24 23:44 Nitroglycerin (Nitroglycerin 1gm Oint) 0.5 inch Q8H TD 08/03/24 00:00 09/02/24 00:00 08/05/24 15:21 0.5 INCH Nitroglycerin (Nitrostat) 0.4 mg AD PRN SL CHEST PAIN 08/02/24 22:30 09/01/24 22:29 Ondansetron HCl (zoFRAN 4MG INJ) 4 mg Q6H PRN IV NAUSEA/VOMITING 08/03/24 00:00 09/02/24 00:00 DIAGNOSTICS / RADIOLOGY: [ ] ASSESSMENT: Acute on chronic hypercarbic/hypoxemic respiratory failure, POA Obesity hypoventilation syndrome, POA Obstructive sleep apnea, POA Chest pain, POA Pneumonia possibly due to Gram-negative and or Gram positive bacteria, POA PLAN: Continue Ceftriaxone and doxy Trend WBCs Follow-up cultures O2 nasal cannula as needed Follow up with Pulmonary -IV antibiotics -IV steroids continue aspirin Monitor blood pressure Heart healthy diet GI prophylaxis with famotidine Discontinue IV fluids Trend a.m. BMP Replete electrolytes as necessary DVT prophylaxis with Lovenox Trend a.m. CBC Full code Case was discussed with patient's nurse at bedside Attention time greater than 30 minutes ANTONELLA GILMAN MD Aug 05, 2024 16:20
--- NOTE | 2024-08-05 21:28 | PN ---
[facility] PROGRESS NOTE Date Patient Seen: Aug 05, 2024 Time of Visit: 21:22 Supervising Physician: TASNEEM DOWD MD Primary Care Physician: [ ] Outpatient Specialists: [ ] Inpatient Consults: [ ] PROBLEM LIST: Acute hypercarbic, hypoxemic respiratory failure on admission Severe morbid obesity, BMI 85.8 Obesity hypoventilation syndrome Obstructive sleep apnea Tobacco use disorder Chest pain on admission Hypertension INTERVAL HISTORY: 08/05/2024 Patient is now off the BiPAP device she is on 5 liters O2 afebrile, well hydrated, awake and alert her CO2 is 40 and her PCO2 is 72 some cough, no congestion, no fevers appetite is good REVIEW OF SYSTEMS: 12 point ROS reviewed with patient. Pertinent positives mentioned above. Otherwise negative. PHYSICAL EXAM: GENERAL: alert, weak, awake oriented x 3 HEENT: EOMI, Sclera non icteric, moist mucosa NECK: Supple, no JVD, trachea midline LUNGS: decreased breath sounds bilaterally, no rhonchi, some wheezing HEART: Regular rate and rhythm. Normal S1 and S2, without murmurs ABD: Abdomen soft, nontender. Bowel sounds present EXT: No clubbing cyanosis or edema NEURO: Alert and oriented to person, follows commands Vital Signs (last 8hr) Date Time Temp Pulse Resp B/P (MAP) Pulse Ox O2 Delivery O2 Flow Rate FiO2 08/05/24 19:30 98.1 79 22 129/77 95 Nasal Cannula 4.0 08/05/24 18:40 78 20 N/Cannula Low lpm 4.0 36 08/05/24 18:40 76 20 08/05/24 16:14 97.9 80 18 118/65 98 Nasal Cannula 2.0 LABS: DIAGNOSTICS / RADIOLOGY RESULTS: Imaging scans reviewed PLAN continue on oxygen continue with BiPAP intermittently taper down steroids continue IV antibiotics follow results from cultures NEURO: Minimize central acting medications as possible. Maintain fall precautions, adequate lighting during the day PULMONARY: Supplemental 02 as needed. Maintain aspiration precautions at all times CARDIOVASCULAR: Follow hemodynamics. Vital signs per facility protocol GI & NUTRITION: Continue with nutritional support. Continue stool softeners and laxatives as needed. KIDNEYS & ELECTROLYTES: Strict monitoring of intake, output and overall fluid balance. Avoid nephrotoxic medications to the extent possible. Medications to be dosed according to renal function. Monitor electrolytes and replace as needed ENDOCRINE: Maintain blood glucose between 100-180 at all times. Hypoglycemia protocol in place INFECTIOUS DISEASE: Trend temperature, WBC and procalcitonin level Follow cultures, deescalate antibiotics as soon as possible. Panculture if new onset fever ONCOLOGY/HEMATOLOGY/COAGULATION: Monitor for s/s of bleeding Monitor hemoglobin, coagulation studies as needed SKIN: Pressure ulcer prevention per facility protocol Specialty mattress ORTHO/REHAB: Continue PT/OT Prophylaxis: Continue GI and DVT prophylaxis Code Status: Full Resuscitation Disposition: TBD I personally scribed for TASNEEM DOWD MD ([email or web address]) on 08/05/24 at 21:28. Electronically submitted by Oli Carrizales ([email or web address]). TASNEEM DOWD MD Aug 05, 2024 21:28
[2024-08-06] VITALS (16 sets, daily range): BP systolic 120–136; BP diastolic 71–86; PULSE 67–91; RESP 16–22; TEMP 97.6–98.6; O2SAT 93–98
--- NOTE | 2024-08-06 20:46 | PN ---
[facility] PROGRESS NOTE Date Patient Seen: Aug 06, 2024 Time of Visit: 14:41 Supervising Physician: DR. TASNEEM DOWD Primary Care Physician: Outpatient Specialists: [ ] Inpatient Consults: ADÁN PROBLEM LIST: Acute hypercarbic, hypoxemic respiratory failure on admission Severe morbid obesity, BMI 85.8 Obesity hypoventilation syndrome Obstructive sleep apnea Tobacco use disorder Chest pain on admission Hypertension INTERVAL HISTORY: 08/06/2024 patient is awake, alert, well oriented , not in distress no fever, extremely obese , still waiting for arrangement for Non invasive ventilator support, otherwise, no new issues reported. REVIEW OF SYSTEMS: 12 point ROS reviewed with patient. Pertinent positives mentioned above. Otherwise negative. PHYSICAL EXAM: GENERAL: alert, weak, awake oriented x 3 HEENT: EOMI, Sclera non icteric, moist mucosa NECK: Supple, no JVD, trachea midline LUNGS: decreased breath sounds bilaterally, no rhonchi, some wheezing HEART: Regular rate and rhythm. Normal S1 and S2, without murmurs ABD: Abdomen soft, nontender. Bowel sounds present EXT: No clubbing cyanosis or edema NEURO: Alert and oriented to person, follows commands Vital Signs (last 8hr) Date Time Temp Pulse Resp B/P (MAP) Pulse Ox O2 Delivery O2 Flow Rate FiO2 08/06/24 19:35 98.2 91 22 120/76 94 Nasal Cannula 4.0 08/06/24 18:41 80 22 N/Cannula Low lpm 4.0 36 08/06/24 18:39 82 22 08/06/24 16:57 98.6 76 19 127/76 99 Nasal Cannula 2.0 08/06/24 16:36 98 Nasal Cannula* 2 28 LABS: DIAGNOSTICS / RADIOLOGY RESULTS: [ ] PLAN Arrangement for Non invasive ventilator support continue on oxygen continue with BiPAP intermittently taper down steroids continue IV antibiotics follow results from cultures NEURO: Minimize central acting medications as possible. Maintain fall precautions, adequate lighting during the day PULMONARY: Supplemental 02 as needed. Maintain aspiration precautions at all times CARDIOVASCULAR: Follow hemodynamics. Vital signs per facility protocol GI & NUTRITION: Continue with nutritional support. Continue stool softeners and laxatives as needed. KIDNEYS & ELECTROLYTES: Strict monitoring of intake, output and overall fluid balance. Avoid nephrotoxic medications to the extent possible. Medications to be dosed according to renal function. Monitor electrolytes and replace as needed ENDOCRINE: Maintain blood glucose between 100-180 at all times. Hypoglycemia protocol in place INFECTIOUS DISEASE: Trend temperature, WBC and procalcitonin level Follow cultures, deescalate antibiotics as soon as possible. Panculture if new onset fever ONCOLOGY/HEMATOLOGY/COAGULATION: Monitor for s/s of bleeding Monitor hemoglobin, coagulation studies as needed SKIN: Pressure ulcer prevention per facility protocol Specialty mattress ORTHO/REHAB: Continue PT/OT Prophylaxis: Continue GI and DVT prophylaxis Code Status: Full Resuscitation Disposition: TBD ATTESTATION BY PHYSICIAN Documentation assistance provided by a scribe, information recorded by the scribe was done at my direction and has been reviewed and validated by me." NOEMÍ BOATENG . I personally scribed for TASNEEM DOWD MD ([email or web address]) on 08/06/24 at 20:46. Electronically submitted by Maria Luisa Gonzales ([id number]). TASNEEM DOWD MD Aug 06, 2024 20:46
[2024-08-06] MEDS: acetaMINOPHEN 325 MG TAB PO PRN (20:56)
--- NOTE | 2024-08-06 21:41 | PN ---
[facility] PROGRESS NOTE Date of Service: Aug 06, 2024 Time of Service: 21:40 SUBJECTIVE: Has been transitioned to nasal cannula. She was saturating well. No new complaints or concerns. No acute events reported overnight. 08/05/24 patient was seen and examined. Case discussed with the RN. She denies any chest pain no shortness a breath. No acute overnight events 08/06/24 patient was seen and examined. Case discussed with the RN. appreciate pulmonology/continue respiratory care/follow labs REVIEW OF SYSTEMS CONSTITUTIONAL: Denies fevers, chills, or night sweats. No unintentional weight loss reported. NEUROLOGICAL: Denies headache, amaurosis fugax, motor weakness, sensory deficit, vertigo/spinning sensation, gait abnormalities, or tremors. ENT: No hearing loss, otalgia, otorrhea, rhinitis, rhinorrhea, hoarseness, or sore throat. CARDIOVASCULAR: Denies any exertional angina, dyspnea on exertion, orthopnea, paroxysmal nocturnal dyspnea, palpitations, life-threatening arrhythmias, claudication. PULMONARY: Denies any shortness of breath, cough, phlegm/sputum, hemoptysis, pleuritic chest pain. SLEEP: Denies morning headaches, daytime somnolence or napping. Denies difficulty falling asleep, staying asleep, waking from sleep. Denies knowledge of snoring. GASTROINTESTINAL: Denies any type of dysphagia to either liquids or solids. Denies nausea, vomiting, pyrosis, early satiety, abdominal pain, diarrhea, constipation, or changes in stool consistency or caliber. Denies coffee-ground emesis, hematemesis, hematochezia, or melanotic stools. GENITOURINARY: Denies frequency, urgency, nocturia, hematuria or incontinence (Storage/Irritative symptoms.) Low urinary stream, straining to void, urinary intermittency or hesitancy, splitting of the voiding stream, terminal dribbling. ENDOCRINOLOGIC: Denies polyuria, polydipsia, polyphagia or heat/cold intolerances. HEMATOLOGIC: Denies thrombophilia/previous clots, or coagulopathy/bleeding disorders. ONCOLOGIC: Denies personal history of malignancy. DERMATOLOGIC: Denies rashes or pruritus. PSYCHIATRIC: Denies any suicidal or homicidal ideation. Denies hallucinations. PHYSICAL EXAM GENERAL APPEARANCE: The patient is awake, alert, and oriented, in no acute cardiopulmonary distress. NEUROLOGICAL: Cranial nerves II-XII grossly intact. Motor is 5/5 in bilateral upper and lower extremities proximal to distal. No sensory deficits. HEENT: Face is symmetric. Pupils are equal and reactive. Extraocular movements are intact. NECK: Supple. No JVD. No thyromegaly. No submental, submandibular, pre- /postauricular, occipital or supraclavicular lymphadenopathy. CHEST: Normal chest expansion. No Telemetry. LUNGS: Absence of any rales, rhonchi or any wheezing. CARDIOVASCULAR: Regular. S1 and S2 normal. No appreciable rubs, murmurs or gallops. ABDOMEN: Soft, nontender, and nondistended. There is no rebound, voluntary guarding, or rigidity. : Deferred. No Palacio. EXTREMITIES: Non-edematous and not cyanotic. No clubbing. Good capillary refill. SKIN: No skin breakdown. Vital Signs (last 8hr) Date Time Temp Pulse Resp B/P (MAP) Pulse Ox O2 Delivery O2 Flow Rate FiO2 08/06/24 19:35 98.2 91 22 120/76 94 Nasal Cannula 4.0 08/06/24 18:41 80 22 N/Cannula Low lpm 4.0 36 08/06/24 18:39 82 22 08/06/24 16:57 98.6 76 19 127/76 99 Nasal Cannula 2.0 08/06/24 16:36 98 Nasal Cannula* 2 28 LABS: Current Medications Medications (Trade) Dose Ordered Sig/Kiet Route PRN Reason Start Time Stop Time Status Last Admin Dose Admin Acetaminophen (TYLenol 325MG TAB) 650 mg Q6H PRN PO TEMPERATURE GREATER THAN 101.5 08/03/24 00:00 09/02/24 00:00 08/06/24 20:56 650 MG Albuterol (DUOneb) 1 UDVIAL [id number] IH 08/03/24 00:00 09/02/24 00:00 08/06/24 18:39 1 UDVIAL Aspirin (Aspirin 81mg Ec Tab) 81 mg DAILY PO 08/03/24 09:00 09/02/24 08:59 08/06/24 08:14 81 MG Ceftriaxone Sodium (ROCEphine 1G INJ) 1 gm Q24H IVPB 08/03/24 00:00 08/13/24 00:00 08/05/24 23:00 1 GM Doxycycline Hyclate 250 ml @ 125 mls/hr Q12H IV 08/03/24 00:00 08/13/24 00:00 08/06/24 12:45 125 MLS/HR Enoxaparin Sodium (Lovenox) 40 mg DAILY SQ 08/03/24 09:00 09/02/24 08:59 08/06/24 08:18 40 MG Famotidine (Pepcid 20mg Tab) 20 mg DAILY PO 08/03/24 09:00 09/02/24 08:59 08/06/24 08:14 20 MG Hydralazine HCl (APRESOLine 20MG INJ) 10 mg Q6H PRN IV For:SBP above 160;DBP above 90 08/03/24 00:00 09/02/24 00:00 Lactated Ringer's 1,000 ml @ 75 mls/hr [id number] IV 08/03/24 00:00 08/04/24 14:28 DC 08/04/24 01:43 75 MLS/HR Methylprednisolone Sodium Succinate (Solu-medROL 40MG) 40 mg Q8H IVP 08/03/24 06:00 09/02/24 05:59 08/06/24 20:55 40 MG Morphine Sulfate (morPHINE 2MG SYG) 2 mg Q4H PRN IVP SEVERE PAIN (7-10) 08/02/24 23:45 08/09/24 23:44 Nitroglycerin (Nitroglycerin 1gm Oint) 0.5 inch Q8H TD 08/03/24 00:00 09/02/24 00:00 08/06/24 16:33 0.5 INCH Nitroglycerin (Nitrostat) 0.4 mg AD PRN SL CHEST PAIN 08/02/24 22:30 09/01/24 22:29 Ondansetron HCl (zoFRAN 4MG INJ) 4 mg Q6H PRN IV NAUSEA/VOMITING 08/03/24 00:00 09/02/24 00:00 DIAGNOSTICS / RADIOLOGY: [ ] ASSESSMENT: Acute on chronic hypercarbic/hypoxemic respiratory failure, POA Obesity hypoventilation syndrome, POA Obstructive sleep apnea, POA Chest pain, POA Pneumonia possibly due to Gram-negative and or Gram positive bacteria, POA PLAN: Continue Ceftriaxone and doxy Trend WBCs Follow-up cultures O2 nasal cannula as needed Follow up with Pulmonary -IV antibiotics -IV steroids continue aspirin Monitor blood pressure Heart healthy diet GI prophylaxis with famotidine Discontinue IV fluids Trend a.m. BMP Replete electrolytes as necessary DVT prophylaxis with Lovenox Trend a.m. CBC Full code Case was discussed with patient's nurse at bedside Attention time greater than 30 minutes ANTONELLA GILMAN MD Aug 06, 2024 21:41
[2024-08-07] VITALS (10 sets, daily range): BP systolic 123–142; BP diastolic 62–83; PULSE 67–101; RESP 18–22; TEMP 97.6–98.6; O2SAT 95–96
--- NOTE | 2024-08-07 11:09 | PN ---
[facility] PROGRESS NOTE Date Patient Seen: Aug 07, 2024 Time of Visit: 11:09 Supervising Physician: [ ] Primary Care Physician: Outpatient Specialists: [ ] Inpatient Consults: ADÁN PROBLEM LIST: Acute hypercarbic, hypoxemic respiratory failure on admission Severe morbid obesity, BMI 85.8 Obesity hypoventilation syndrome Obstructive sleep apnea Tobacco use disorder Chest pain on admission Hypertension INTERVAL HISTORY: 08/06/2024 patient is awake, alert, well oriented , not in distress no fever, extremely obese , still waiting for arrangement for Non invasive ventilator support, otherwise, no new issues reported. REVIEW OF SYSTEMS: 12 point ROS reviewed with patient. Pertinent positives mentioned above. Otherwise negative. PHYSICAL EXAM: GENERAL: alert, weak, awake oriented x 3 HEENT: EOMI, Sclera non icteric, moist mucosa NECK: Supple, no JVD, trachea midline LUNGS: decreased breath sounds bilaterally, no rhonchi, some wheezing HEART: Regular rate and rhythm. Normal S1 and S2, without murmurs ABD: Abdomen soft, nontender. Bowel sounds present EXT: No clubbing cyanosis or edema NEURO: Alert and oriented to person, follows commands Vital Signs (last 8hr) Date Time Temp Pulse Resp B/P (MAP) Pulse Ox O2 Delivery O2 Flow Rate FiO2 08/07/24 08:00 97.5 69 19 136/83 95 Room Air 08/07/24 06:54 68 22 N/Cannula Low lpm 4.0 36 08/07/24 06:51 68 20 08/07/24 04:00 97.9 101 20 127/72 95 Room Air LABS: DIAGNOSTICS / RADIOLOGY RESULTS: [ ] PLAN Arrangement for Non invasive ventilator support continue on oxygen continue with BiPAP intermittently taper down steroids continue IV antibiotics follow results from cultures NEURO: Minimize central acting medications as possible. Maintain fall precautions, adequate lighting during the day PULMONARY: Supplemental 02 as needed. Maintain aspiration precautions at all times CARDIOVASCULAR: Follow hemodynamics. Vital signs per facility protocol GI & NUTRITION: Continue with nutritional support. Continue stool softeners and laxatives as needed. KIDNEYS & ELECTROLYTES: Strict monitoring of intake, output and overall fluid balance. Avoid nephrotoxic medications to the extent possible. Medications to be dosed according to renal function. Monitor electrolytes and replace as needed ENDOCRINE: Maintain blood glucose between 100-180 at all times. Hypoglycemia protocol in place INFECTIOUS DISEASE: Trend temperature, WBC and procalcitonin level Follow cultures, deescalate antibiotics as soon as possible. Panculture if new onset fever ONCOLOGY/HEMATOLOGY/COAGULATION: Monitor for s/s of bleeding Monitor hemoglobin, coagulation studies as needed SKIN: Pressure ulcer prevention per facility protocol Specialty mattress ORTHO/REHAB: Continue PT/OT Prophylaxis: Continue GI and DVT prophylaxis Code Status: Full Resuscitation Disposition: TBD ATTESTATION BY PHYSICIAN Documentation assistance provided by a scribe, information recorded by the scribe was done at my direction and has been reviewed and validated by me." COSMO SANTIAGO MD I personally scribed for COSMO SANTIAGO MD ([email or web address]) on 08/07/24 at 11:09. Electronically submitted by Maria Luisa Gonzales ([id number]). COSMO SANTIAGO MD Aug 07, 2024 11:09
--- NOTE | 2024-08-07 16:12 | PN ---
[facility] PROGRESS NOTE Date Patient Seen: Aug 07, 2024 Time of Visit: 12:04 Supervising Physician: DR. COSMO SANTIAGO Primary Care Physician: Outpatient Specialists: [ ] Inpatient Consults: ADÁN PROBLEM LIST: Acute hypercarbic, hypoxemic respiratory failure on admission Severe morbid obesity, BMI 85.8 Obesity hypoventilation syndrome Obstructive sleep apnea Tobacco use disorder Chest pain on admission Hypertension INTERVAL HISTORY: 08/06/2024 patient is awake, alert, well oriented , not in distress no fever, extremely obese , still waiting for arrangement for Non invasive ventilator support, otherwise, no new issues reported. 08/07/2024 Patient is a extremely obese female patient with persistent acute on chronic hypercapnic hypoxic respiratory failure secondary to obesity hypoventilation syndrome, obesity, obstructive sleep apnea continues to be on oxygen support and CM working in all arrangements for NIV equipment , condition and plan of care has been explained to her Daughter Paula over the phone, patient and daughter verbalized understanding and agree with plan of care. REVIEW OF SYSTEMS: 12 point ROS reviewed with patient. Pertinent positives mentioned above. Otherwise negative. PHYSICAL EXAM: GENERAL: alert, weak, awake oriented x 3 HEENT: EOMI, Sclera non icteric, moist mucosa NECK: Supple, no JVD, trachea midline LUNGS: decreased breath sounds bilaterally, no rhonchi, some wheezing HEART: Regular rate and rhythm. Normal S1 and S2, without murmurs ABD: Abdomen soft, nontender. Bowel sounds present EXT: No clubbing cyanosis or edema NEURO: Alert and oriented to person, follows commands Vital Signs (last 8hr) Date Time Temp Pulse Resp B/P (MAP) Pulse Ox O2 Delivery O2 Flow Rate FiO2 08/07/24 12:00 98.6 68 18 142/82 93 Nasal Cannula 3.0 08/07/24 11:21 73 20 LABS: Obtain CBC, CMP, BNP, ABG's in am DIAGNOSTICS / RADIOLOGY RESULTS: Plan is to repeat chest x ray PLAN Stop solumedrol Obtain CBC,CMP, BNP, ABG's and Chest x ray in am Arrangement for Non invasive ventilator support continue on oxygen continue with BiPAP intermittently taper down steroids continue IV antibiotics follow results from cultures NEURO: Minimize central acting medications as possible. Maintain fall precautions, adequate lighting during the day PULMONARY: Supplemental 02 as needed. Maintain aspiration precautions at all times CARDIOVASCULAR: Follow hemodynamics. Vital signs per facility protocol GI & NUTRITION: Continue with nutritional support. Continue stool softeners and laxatives as needed. KIDNEYS & ELECTROLYTES: Strict monitoring of intake, output and overall fluid balance. Avoid nephrotoxic medications to the extent possible. Medications to be dosed according to renal function. Monitor electrolytes and replace as needed ENDOCRINE: Maintain blood glucose between 100-180 at all times. Hypoglycemia protocol in place INFECTIOUS DISEASE: Trend temperature, WBC and procalcitonin level Follow cultures, deescalate antibiotics as soon as possible. Panculture if new onset fever ONCOLOGY/HEMATOLOGY/COAGULATION: Monitor for s/s of bleeding Monitor hemoglobin, coagulation studies as needed SKIN: Pressure ulcer prevention per facility protocol Specialty mattress ORTHO/REHAB: Continue PT/OT Prophylaxis: Continue GI and DVT prophylaxis Code Status: Full Resuscitation Disposition: TBD Patient care spent time exceeds more than 35 minutes ATTESTATION BY PHYSICIAN Documentation assistance provided by a scribe, information recorded by the scribe was done at my direction and has been reviewed and validated by me." COSMO SANTIAGO MD I personally scribed for COSMO SANTIAGO MD ([email or web address]) on 08/07/24 at 16:12. Electronically submitted by Maria Luisa Gonzales ([id number]). I personally scribed for COSMO SANTIAGO MD ([email or web address]) on 08/07/24 at 16:14. Electronically submitted by Maria Luisa Gonzales ([id number]). COSMO SANTIAGO MD Aug 07, 2024 16:12
--- NOTE | 2024-08-07 19:06 | PN ---
[facility] PROGRESS NOTE Date of Service: Aug 07, 2024 Time of Service: 19:04 SUBJECTIVE: Has been transitioned to nasal cannula. She was saturating well. No new complaints or concerns. No acute events reported overnight. 08/05/24 patient was seen and examined. Case discussed with the RN. She denies any chest pain no shortness a breath. No acute overnight events 08/06/24 patient was seen and examined. Case discussed with the RN. appreciate pulmonology/continue respiratory care/follow labs 08/07 Morbidly obese patient still dependent on oxygen Patient is still SOB. We will request PT to eval and treat. REVIEW OF SYSTEMS CONSTITUTIONAL: Denies fevers, chills, or night sweats. No unintentional weight loss reported. NEUROLOGICAL: Denies headache, amaurosis fugax, motor weakness, sensory deficit, vertigo/spinning sensation, gait abnormalities, or tremors. ENT: No hearing loss, otalgia, otorrhea, rhinitis, rhinorrhea, hoarseness, or sore throat. CARDIOVASCULAR: Denies any exertional angina, dyspnea on exertion, orthopnea, paroxysmal nocturnal dyspnea, palpitations, life-threatening arrhythmias, claudication. PULMONARY: Denies any shortness of breath, cough, phlegm/sputum, hemoptysis, pleuritic chest pain. SLEEP: Denies morning headaches, daytime somnolence or napping. Denies difficulty falling asleep, staying asleep, waking from sleep. Denies knowledge of snoring. GASTROINTESTINAL: Denies any type of dysphagia to either liquids or solids. Denies nausea, vomiting, pyrosis, early satiety, abdominal pain, diarrhea, constipation, or changes in stool consistency or caliber. Denies coffee-ground emesis, hematemesis, hematochezia, or melanotic stools. GENITOURINARY: Denies frequency, urgency, nocturia, hematuria or incontinence (Storage/Irritative symptoms.) Low urinary stream, straining to void, urinary intermittency or hesitancy, splitting of the voiding stream, terminal dribbling. ENDOCRINOLOGIC: Denies polyuria, polydipsia, polyphagia or heat/cold intolerances. HEMATOLOGIC: Denies thrombophilia/previous clots, or coagulopathy/bleeding disorders. ONCOLOGIC: Denies personal history of malignancy. DERMATOLOGIC: Denies rashes or pruritus. PSYCHIATRIC: Denies any suicidal or homicidal ideation. Denies hallucinations. PHYSICAL EXAM GENERAL APPEARANCE: The patient is awake, alert, and oriented, in no acute cardiopulmonary distress. NEUROLOGICAL: Cranial nerves II-XII grossly intact. Motor is 5/5 in bilateral upper and lower extremities proximal to distal. No sensory deficits. HEENT: Face is symmetric. Pupils are equal and reactive. Extraocular movements are intact. NECK: Supple. No JVD. No thyromegaly. No submental, submandibular, pre- /postauricular, occipital or supraclavicular lymphadenopathy. CHEST: Normal chest expansion. No Telemetry. LUNGS: Absence of any rales, rhonchi or any wheezing. CARDIOVASCULAR: Regular. S1 and S2 normal. No appreciable rubs, murmurs or gallops. ABDOMEN: Soft, nontender, and nondistended. There is no rebound, voluntary guarding, or rigidity. : Deferred. No Palacio. EXTREMITIES: Non-edematous and not cyanotic. No clubbing. Good capillary refill. SKIN: No skin breakdown. Vital Signs (last 8hr) Date Time Temp Pulse Resp B/P (MAP) Pulse Ox O2 Delivery O2 Flow Rate FiO2 08/07/24 16:16 98.2 67 19 141/77 100 Nasal Cannula 3.0 08/07/24 12:00 98.6 68 18 142/82 93 Nasal Cannula 3.0 08/07/24 11:21 73 20 LABS: Current Medications Medications (Trade) Dose Ordered Sig/Kiet Route PRN Reason Start Time Stop Time Status Last Admin Dose Admin Acetaminophen (TYLenol 325MG TAB) 650 mg Q6H PRN PO TEMPERATURE GREATER THAN 101.5 08/03/24 00:00 09/02/24 00:00 08/06/24 20:56 650 MG Albuterol (DUOneb) 1 UDVIAL [id number] IH 08/03/24 00:00 09/02/24 00:00 08/07/24 11:20 1 UDVIAL Aspirin (Aspirin 81mg Ec Tab) 81 mg DAILY PO 08/03/24 09:00 09/02/24 08:59 08/07/24 09:18 81 MG Ceftriaxone Sodium (ROCEphine 1G INJ) 1 gm Q24H IVPB 08/03/24 00:00 08/13/24 00:00 08/06/24 23:50 1 GM Doxycycline Hyclate 250 ml @ 125 mls/hr Q12H IV 08/03/24 00:00 08/13/24 00:00 08/07/24 12:21 125 MLS/HR Enoxaparin Sodium (Lovenox) 40 mg DAILY SQ 08/03/24 09:00 09/02/24 08:59 08/07/24 09:19 40 MG Famotidine (Pepcid 20mg Tab) 20 mg DAILY PO 08/03/24 09:00 09/02/24 08:59 08/07/24 09:18 20 MG Hydralazine HCl (APRESOLine 20MG INJ) 10 mg Q6H PRN IV For:SBP above 160;DBP above 90 08/03/24 00:00 09/02/24 00:00 Lactated Ringer's 1,000 ml @ 75 mls/hr [id number] IV 08/03/24 00:00 08/04/24 14:28 DC 08/04/24 01:43 75 MLS/HR Methylprednisolone Sodium Succinate (Solu-medROL 40MG) 40 mg Q8H IVP 08/03/24 06:00 08/07/24 12:11 DC 08/07/24 05:32 40 MG Morphine Sulfate (morPHINE 2MG SYG) 2 mg Q4H PRN IVP SEVERE PAIN (7-10) 08/02/24 23:45 08/09/24 23:44 Nitroglycerin (Nitroglycerin 1gm Oint) 0.5 inch Q8H TD 08/03/24 00:00 09/02/24 00:00 08/07/24 16:18 0.5 INCH Nitroglycerin (Nitrostat) 0.4 mg AD PRN SL CHEST PAIN 08/02/24 22:30 09/01/24 22:29 Ondansetron HCl (zoFRAN 4MG INJ) 4 mg Q6H PRN IV NAUSEA/VOMITING 08/03/24 00:00 09/02/24 00:00 DIAGNOSTICS / RADIOLOGY: [ ] ASSESSMENT: Acute on chronic hypercarbic/hypoxemic respiratory failure, POA Obesity hypoventilation syndrome, POA Obstructive sleep apnea, POA Chest pain, POA Pneumonia possibly due to Gram-negative and or Gram positive bacteria, POA PLAN: Continue Ceftriaxone and doxy Trend WBCs Follow-up cultures O2 nasal cannula as needed Follow up with Pulmonary -IV antibiotics -IV steroids continue aspirin Monitor blood pressure Heart healthy diet GI prophylaxis with famotidine Discontinue IV fluids Trend a.m. BMP Replete electrolytes as necessary DVT prophylaxis with Lovenox Trend a.m. CBC She will beenfot for sleep study, 2/ ANGELO Full code Case was discussed with patient's nurse at bedside Attention time greater than 30 minutes ATTESTATION BY PHYSICIAN I have seen and examined the patient. I reviewed the documentation, medical decision making, and treatment plan as noted by the mid-level provider above. I agree with the findings and plan of care. YUMIKO HATCH MD, [facility] Aug 07, 2024 19:05
[2024-08-08] VITALS (12 sets, daily range): BP systolic 121–133; BP diastolic 58–78; PULSE 66–81; RESP 18–20; TEMP 97.8–98.7; O2SAT 92–95
[2024-08-08 07:12] LABS: BASOPHILS # (AUTO) 0.03 K/uL (0.00-0.20); BASOPHILS % (AUTO) 0.5 % (0.0-5.0); EOSINOPHILS # (AUTO) 0.11 K/uL (0.00-0.70); EOSINOPHILS % (AUTO) 1.7 % (0.0-8.0); HEMATOCRIT 45.1 % (36-48); IMMATURE GRANULOCYTE ABSOLUTE 0.02 K/uL (0-1); LYMPHOCYTES # (AUTO) 1.9 K/uL (1.0-4.8); LYMPHOCYTES % (AUTO) 30.3 % (21.0-51.0); MEAN CORPUSCULAR HEMOGLOBIN 24.7 pg (27.0-33.0); MEAN CORPUSCULAR HGB CONC 29.3 g/dL (32.0-36.0); MEAN CORPUSCULAR VOLUME 84.5 fL (79-99); MONOCYTES # (AUTO) 0.7 K/uL (0.1-1.0); MONOCYTES % (AUTO) 10.3 % (3.0-13.0); NEUTROPHILS # (AUTO) 3.6 K/uL (1.8-7.7); NEUTROPHILS % (AUTO) 56.9 % (40.0-77.0); PLATELET COUNT (AUTO) 209 K/uL (130-400); RED BLOOD CELL COUNT(AUTO) 5.34 MIL/uL (4.00-5.50); RED CELL DISTRIBUTION WIDTH 17.5 % (11.0-15.5); WHITE BLOOD COUNT (AUTO) 6.3 K/uL (4.8-10.8)
[2024-08-08 07:28] LABS: ALBUMIN 2.7 g/dL (3.5-5.0); BILIRUBIN,TOTAL 0.7 mg/dL (0.2-1.0); CREATININE 0.7 mg/dL (0.5-1.0); POTASSIUM 3.8 mmol/L (3.5-5.1); TOTAL PROTEIN, SERUM 6.3 g/dL (6.0-8.3)
[2024-08-08 07:50] LABS: B-TYPE NATRIURETIC PEPTIDE 32 pg/mL (0-100)
[2024-08-08 12:33] LABS: ABG BASE EXCESS 9.3 mmol/L (-2.0-3.0); ABG HCO3 37.6 mmol/L (21.0-28.0); ABG OXYGEN SATURATION 91.8 % (94.0-98.0); ABG PH 7.365 (7.350-7.450); DEVICE COMMENT LILY RN RR; PO2, ARTERIAL BG 66.3 mmHg (83.0-108.0); VENT MODE, BG 3L NC (ROOM AIR)
--- NOTE | 2024-08-08 12:34 | HMCIMG ---
CHEST 1VW HISTORY: Dyspnea COMPARISON: 08/02/2024 FINDINGS: A frontal projection of the chest was obtained. There are bilateral pulmonary infiltrates suggestive of pulmonary vascular congestion with possible superimposed pneumonitis. The heart is borderline enlarged. Degenerative changes are seen No evidence of aortic calcification is seen. IMPRESSION: 1. Bilateral pulmonary infiltrates are seen suggestive of pulmonary vascular congestion with possible superimposed pneumonitis.
--- NOTE | 2024-08-08 13:27 | PN ---
[facility] PROGRESS NOTE Date of Service: Aug 08, 2024 Time of Service: 13:26 SUBJECTIVE: Has been transitioned to nasal cannula. She was saturating well. No new complaints or concerns. No acute events reported overnight. 08/05/24 patient was seen and examined. Case discussed with the RN. She denies any chest pain no shortness a breath. No acute overnight events 08/06/24 patient was seen and examined. Case discussed with the RN. appreciate pulmonology/continue respiratory care/follow labs 08/07 Morbidly obese patient still dependent on oxygen Patient is still SOB. We will request PT to eval and treat. 08/08 patient was followed up today. Patient is obviously dependent on oxygen. She is on 3 L via nasal cannula. Desaturates even at rest. REVIEW OF SYSTEMS CONSTITUTIONAL: Denies fevers, chills, or night sweats. No unintentional weight loss reported. NEUROLOGICAL: Denies headache, amaurosis fugax, motor weakness, sensory deficit, vertigo/spinning sensation, gait abnormalities, or tremors. ENT: No hearing loss, otalgia, otorrhea, rhinitis, rhinorrhea, hoarseness, or sore throat. CARDIOVASCULAR: Denies any exertional angina, dyspnea on exertion, orthopnea, paroxysmal nocturnal dyspnea, palpitations, life-threatening arrhythmias, claudication. PULMONARY: Denies any shortness of breath, cough, phlegm/sputum, hemoptysis, pleuritic chest pain. SLEEP: Denies morning headaches, daytime somnolence or napping. Denies difficulty falling asleep, staying asleep, waking from sleep. Denies knowledge of snoring. GASTROINTESTINAL: Denies any type of dysphagia to either liquids or solids. Denies nausea, vomiting, pyrosis, early satiety, abdominal pain, diarrhea, constipation, or changes in stool consistency or caliber. Denies coffee-ground emesis, hematemesis, hematochezia, or melanotic stools. GENITOURINARY: Denies frequency, urgency, nocturia, hematuria or incontinence (Storage/Irritative symptoms.) Low urinary stream, straining to void, urinary intermittency or hesitancy, splitting of the voiding stream, terminal dribbling. ENDOCRINOLOGIC: Denies polyuria, polydipsia, polyphagia or heat/cold intolerances. HEMATOLOGIC: Denies thrombophilia/previous clots, or coagulopathy/bleeding disorders. ONCOLOGIC: Denies personal history of malignancy. DERMATOLOGIC: Denies rashes or pruritus. PSYCHIATRIC: Denies any suicidal or homicidal ideation. Denies hallucinations. PHYSICAL EXAM GENERAL APPEARANCE: The patient is awake, alert, and oriented, in no acute cardiopulmonary distress. NEUROLOGICAL: Cranial nerves II-XII grossly intact. Motor is 5/5 in bilateral upper and lower extremities proximal to distal. No sensory deficits. HEENT: Face is symmetric. Pupils are equal and reactive. Extraocular movements are intact. NECK: Supple. No JVD. No thyromegaly. No submental, submandibular, pre- /postauricular, occipital or supraclavicular lymphadenopathy. CHEST: Normal chest expansion. No Telemetry. LUNGS: Absence of any rales, rhonchi or any wheezing. CARDIOVASCULAR: Regular. S1 and S2 normal. No appreciable rubs, murmurs or gallops. ABDOMEN: Soft, nontender, and nondistended. There is no rebound, voluntary guarding, or rigidity. : Deferred. No Palacio. EXTREMITIES: Non-edematous and not cyanotic. No clubbing. Good capillary refill. SKIN: No skin breakdown. Vital Signs (last 8hr) Date Time Temp Pulse Resp B/P (MAP) Pulse Ox O2 Delivery O2 Flow Rate FiO2 08/08/24 12:00 98.4 77 20 129/68 94 Room Air 0.0 08/08/24 11:28 78 18 N/Cannula Low lpm 3.0 32 08/08/24 11:27 78 20 08/08/24 08:00 98.2 74 19 121/58 92 Room Air 08/08/24 08:00 92 Nasal Cannula* 3 32 08/08/24 07:06 66 20 08/08/24 07:06 66 18 N/Cannula Low lpm 3.0 32 LABS: Laboratory: Test 08/08/24 12:32 08/08/24 06:15 Range/Units Blood Gas Specimen Type Arterial Arterial Blood pH 7.365 7.350-7.450 Arterial Blood Partial Pressure CO2 67 *H 32-45 mmHg Arterial Blood Partial Pressure O2 66.3 L 83.0-108.0 mmHg Arterial Blood HCO3 37.6 H 21.0-28.0 mmol/L Arterial Blood Oxygen Saturation 91.8 L 94.0-98.0 % Arterial Blood Base Excess 9.3 H -2.0-3.0 mmol/L Blood Gas Temperature 37.0 35.5-37.0 CELSIUS Blood Gas Flow-by 3.00 0.00-15.00 L/min Blood Gas Vent Mode 3L NC ROOM AIR FiO2 32.0 % Blood Gas Specimen Comment JANET RN RR White Blood Count 6.3 4.8-10.8 K/uL Red Blood Count 5.34 4.00-5.50 MIL/uL Hemoglobin 13.2 12.0-16.0 g/dL Hematocrit 45.1 36-48 % Mean Corpuscular Volume 84.5 79-99 fL Mean Corpuscular Hemoglobin 24.7 L 27.0-33.0 pg Mean Corpuscular Hemoglobin Concent 29.3 L 32.0-36.0 g/dL Red Cell Distribution Width 17.5 H 11.0-15.5 % Platelet Count 209 130-400 K/uL Mean Platelet Volume 10.4 7.5-10.5 fL Immature Granulocyte % (Auto) 0.3 0-1 % Neutrophils (%) (Auto) 56.9 40.0-77.0 % Lymphocytes (%) (Auto) 30.3 21.0-51.0 % Monocytes (%) (Auto) 10.3 3.0-13.0 % Eosinophils (%) (Auto) 1.7 0.0-8.0 % Basophils (%) (Auto) 0.5 0.0-5.0 % Neutrophils # (Auto) 3.6 1.8-7.7 K/uL Lymphocytes # (Auto) 1.9 1.0-4.8 K/uL Monocytes # (Auto) 0.7 0.1-1.0 K/uL Eosinophils # (Auto) 0.11 0.00-0.70 K/uL Basophils # (Auto) 0.03 0.00-0.20 K/uL Absolute Immature Granulocyte (auto 0.02 0-1 K/uL Nucleated Red Blood Cells 0.0 0.0-0.19 % Sodium Level 142 136-145 mmol/L Potassium Level 3.8 3.5-5.1 mmol/L Chloride Level 103 101-111 mmol/L Carbon Dioxide Level 38 H 21-32 mmol/L Blood Urea Nitrogen 23 H 7-18 mg/dL Creatinine 0.7 0.5-1.0 mg/dL Glomerular Filtration Rate Calc 103 >90 mL/min Random Glucose 77 70-105 mg/dL Total Calcium 8.5 8.5-10.1 mg/dL Total Bilirubin 0.7 0.2-1.0 mg/dL Aspartate Amino Transf (AST/SGOT) 18 10-37 U/L Alanine Aminotransferase (ALT/SGPT) 27 12-78 U/L Alkaline Phosphatase 55 50-136 U/L B-Type Natriuretic Peptide 32 0-100 pg/mL Total Protein 6.3 6.0-8.3 g/dL Albumin 2.7 L 3.5-5.0 g/dL Current Medications Medications (Trade) Dose Ordered Sig/Kiet Route PRN Reason Start Time Stop Time Status Last Admin Dose Admin Acetaminophen (TYLenol 325MG TAB) 650 mg Q6H PRN PO TEMPERATURE GREATER THAN 101.5 08/03/24 00:00 09/02/24 00:00 08/06/24 20:56 650 MG Albuterol (DUOneb) 1 UDVIAL [id number] IH 08/03/24 00:00 09/02/24 00:00 08/08/24 11:27 1 UDVIAL Aspirin (Aspirin 81mg Ec Tab) 81 mg DAILY PO 08/03/24 09:00 09/02/24 08:59 08/08/24 08:52 81 MG Ceftriaxone Sodium (ROCEphine 1G INJ) 1 gm Q24H IVPB 08/03/24 00:00 08/13/24 00:00 08/07/24 23:28 1 GM Doxycycline Hyclate 250 ml @ 125 mls/hr Q12H IV 08/03/24 00:00 08/13/24 00:00 08/08/24 11:27 125 MLS/HR Enoxaparin Sodium (Lovenox) 40 mg DAILY SQ 08/03/24 09:00 09/02/24 08:59 08/08/24 08:52 40 MG Famotidine (Pepcid 20mg Tab) 20 mg DAILY PO 08/03/24 09:00 09/02/24 08:59 08/08/24 08:52 20 MG Hydralazine HCl (APRESOLine 20MG INJ) 10 mg Q6H PRN IV For:SBP above 160;DBP above 90 08/03/24 00:00 09/02/24 00:00 Lactated Ringer's 1,000 ml @ 75 mls/hr [id number] IV 08/03/24 00:00 08/04/24 14:28 DC 08/04/24 01:43 75 MLS/HR Methylprednisolone Sodium Succinate (Solu-medROL 40MG) 40 mg Q8H IVP 08/03/24 06:00 08/07/24 12:11 DC 08/07/24 05:32 40 MG Morphine Sulfate (morPHINE 2MG SYG) 2 mg Q4H PRN IVP SEVERE PAIN (7-10) 08/02/24 23:45 08/08/24 02:44 DC Nitroglycerin (Nitroglycerin 1gm Oint) 0.5 inch Q8H TD 08/03/24 00:00 09/02/24 00:00 08/08/24 08:51 0.5 INCH Nitroglycerin (Nitrostat) 0.4 mg AD PRN SL CHEST PAIN 08/02/24 22:30 09/01/24 22:29 Ondansetron HCl (zoFRAN 4MG INJ) 4 mg Q6H PRN IV NAUSEA/VOMITING 08/03/24 00:00 09/02/24 00:00 DIAGNOSTICS / RADIOLOGY: [ ] ASSESSMENT: Acute on chronic hypercarbic/hypoxemic respiratory failure, POA Obesity hypoventilation syndrome, POA Obstructive sleep apnea, POA Chest pain, POA Pneumonia possibly due to Gram-negative and or Gram positive bacteria, POA PLAN: Continue Ceftriaxone and doxy Trend WBCs Follow-up cultures O2 nasal cannula as needed Follow up with Pulmonary -IV antibiotics -IV steroids continue aspirin Monitor blood pressure Heart healthy diet GI prophylaxis with famotidine Discontinue IV fluids Trend a.m. BMP Replete electrolytes as necessary DVT prophylaxis with Lovenox Trend a.m. CBC She will benefit for sleep study, 2/ ANGELO Patient will also benefit from oxygen supplementation at home unfortunately patient is non funded Full code Case was discussed with patient's nurse at bedside Case discussed with Dr. Hatch, above plan was formulated ATTESTATION BY PHYSICIAN I have seen and examined the patient. I reviewed the documentation, medical decision making, and treatment plan as noted by the mid-level provider above. I agree with the findings and plan of care. HATCH, JACKIE CHATTERJEE MD AGPCNP Aug 08, 2024 13:27
[2024-08-08 15:16] LABS: ABG PCO2 67 mmHg (32-45)
--- NOTE | 2024-08-08 18:50 | PN ---
[facility] PROGRESS NOTE Date Patient Seen: Aug 08, 2024 Time of Visit: 12:45 Supervising Physician: DR. COSMO SANTIAGO Primary Care Physician: Outpatient Specialists: [ ] Inpatient Consults: ADÁN PROBLEM LIST: Acute hypercarbic, hypoxemic respiratory failure on admission Severe morbid obesity, BMI 85.8 Obesity hypoventilation syndrome Obstructive sleep apnea Tobacco use disorder Chest pain on admission Hypertension INTERVAL HISTORY: 08/06/2024 patient is awake, alert, well oriented , not in distress no fever, extremely obese , still waiting for arrangement for Non invasive ventilator support, otherwise, no new issues reported. 08/07/2024 Patient is a extremely obese female patient with persistent acute on chronic hypercapnic hypoxic respiratory failure secondary to obesity hypoventilation syndrome, obesity, obstructive sleep apnea continues to be on oxygen support and CM working in all arrangements for NIV equipment , condition and plan of care has been explained to her Daughter Paula over the phone, patient and daughter verbalized understanding and agree with plan of care. 08/08/2024 Patient is awake, alert, well oriented, still on oxygen via nasal cannula waiting for trilogy arrangements per Case management, still hypercapnia, high risk of decompensation, denies fever, chills, nausea or vomiting, we will continue monitoring closely. REVIEW OF SYSTEMS: 12 point ROS reviewed with patient. Pertinent positives mentioned above. Otherwise negative. PHYSICAL EXAM: GENERAL: alert, weak, awake oriented x 3 HEENT: EOMI, Sclera non icteric, moist mucosa NECK: Supple, no JVD, trachea midline LUNGS: decreased breath sounds bilaterally, no rhonchi, some wheezing HEART: Regular rate and rhythm. Normal S1 and S2, without murmurs ABD: Abdomen soft, nontender. Bowel sounds present EXT: No clubbing cyanosis or edema NEURO: Alert and oriented to person, follows commands Vital Signs (last 8hr) Date Time Temp Pulse Resp B/P (MAP) Pulse Ox O2 Delivery O2 Flow Rate FiO2 08/08/24 16:00 98.8 75 19 123/75 95 Room Air 0.0 08/08/24 12:00 98.4 77 20 129/68 94 Room Air 0.0 08/08/24 11:28 78 18 N/Cannula Low lpm 3.0 32 08/08/24 11:27 78 20 LABS: Hematology Labs: Test 08/08/24 06:15 Range/Units White Blood Count 6.3 4.8-10.8 K/uL Red Blood Count 5.34 4.00-5.50 MIL/uL Hemoglobin 13.2 12.0-16.0 g/dL Hematocrit 45.1 36-48 % Mean Corpuscular Volume 84.5 79-99 fL Mean Corpuscular Hemoglobin 24.7 L 27.0-33.0 pg Mean Corpuscular Hemoglobin Concent 29.3 L 32.0-36.0 g/dL Red Cell Distribution Width 17.5 H 11.0-15.5 % Platelet Count 209 130-400 K/uL Mean Platelet Volume 10.4 7.5-10.5 fL Immature Granulocyte % (Auto) 0.3 0-1 % Neutrophils (%) (Auto) 56.9 40.0-77.0 % Lymphocytes (%) (Auto) 30.3 21.0-51.0 % Monocytes (%) (Auto) 10.3 3.0-13.0 % Eosinophils (%) (Auto) 1.7 0.0-8.0 % Basophils (%) (Auto) 0.5 0.0-5.0 % Neutrophils # (Auto) 3.6 1.8-7.7 K/uL Lymphocytes # (Auto) 1.9 1.0-4.8 K/uL Monocytes # (Auto) 0.7 0.1-1.0 K/uL Eosinophils # (Auto) 0.11 0.00-0.70 K/uL Basophils # (Auto) 0.03 0.00-0.20 K/uL Absolute Immature Granulocyte (auto 0.02 0-1 K/uL Nucleated Red Blood Cells 0.0 0.0-0.19 % Chemistry Labs: Test 08/08/24 06:15 Range/Units Sodium Level 142 136-145 mmol/L Potassium Level 3.8 3.5-5.1 mmol/L Chloride Level 103 101-111 mmol/L Carbon Dioxide Level 38 H 21-32 mmol/L Blood Urea Nitrogen 23 H 7-18 mg/dL Creatinine 0.7 0.5-1.0 mg/dL Glomerular Filtration Rate Calc 103 >90 mL/min Random Glucose 77 70-105 mg/dL Total Calcium 8.5 8.5-10.1 mg/dL Total Bilirubin 0.7 0.2-1.0 mg/dL Aspartate Amino Transf (AST/SGOT) 18 10-37 U/L Alanine Aminotransferase (ALT/SGPT) 27 12-78 U/L Alkaline Phosphatase 55 50-136 U/L B-Type Natriuretic Peptide 32 0-100 pg/mL Total Protein 6.3 6.0-8.3 g/dL Albumin 2.7 L 3.5-5.0 g/dL DIAGNOSTICS / RADIOLOGY RESULTS: [ ] PLAN Arrangement for Non invasive ventilator support continue on oxygen continue with BiPAP intermittently continue IV antibiotics follow results from cultures NEURO: Minimize central acting medications as possible. Maintain fall precautions, adequate lighting during the day PULMONARY: Supplemental 02 as needed. Maintain aspiration precautions at all times CARDIOVASCULAR: Follow hemodynamics. Vital signs per facility protocol GI & NUTRITION: Continue with nutritional support. Continue stool softeners and laxatives as needed. KIDNEYS & ELECTROLYTES: Strict monitoring of intake, output and overall fluid balance. Avoid nephrotoxic medications to the extent possible. Medications to be dosed according to renal function. Monitor electrolytes and replace as needed ENDOCRINE: Maintain blood glucose between 100-180 at all times. Hypoglycemia protocol in place INFECTIOUS DISEASE: Trend temperature, WBC and procalcitonin level Follow cultures, deescalate antibiotics as soon as possible. Panculture if new onset fever ONCOLOGY/HEMATOLOGY/COAGULATION: Monitor for s/s of bleeding Monitor hemoglobin, coagulation studies as needed SKIN: Pressure ulcer prevention per facility protocol Specialty mattress ORTHO/REHAB: Continue PT/OT Prophylaxis: Continue GI and DVT prophylaxis Code Status: Full Resuscitation Disposition: TBD Patient care spent time exceeds more than 35 minutes ATTESTATION BY PHYSICIAN Documentation assistance provided by a scribe, information recorded by the scribe was done at my direction and has been reviewed and validated by me." COSMO SANTIAGO MD I personally scribed for COSMO SANTIAGO MD ([email or web address]) on 08/08/24 at 18:50. Electr onically submitted by Maria Luisa Gonzales ([id number]). COSMO SANTIAGO MD Aug 08, 2024 18:50
[2024-08-08] MEDS: ENOXAPARIN SODIUM 40 MG/0.4 ML SYRINGE SQ SCH (20:49)
[2024-08-09] VITALS (12 sets, daily range): BP systolic 122–143; BP diastolic 62–76; PULSE 72–91; RESP 18–20; TEMP 97.9–99.1; O2SAT 94–96
--- NOTE | 2024-08-09 09:14 | HMCIMG ---
US VENOUS DOPPLER BILATERAL HISTORY: DVT COMPARISON: None TECHNIQUE: Bilateral lower extremity venous Doppler ultrasound study was performed. FINDINGS: The common femoral, femoral, popliteal, and posterior tibial veins are visualized. Normal flow with augmentation and compressibilities are demonstrated. The greater saphenous veins are also seen and grossly patent. There is right Mcwilliams's cyst measuring 5.9 x 1.3 x 3.5 cm. IMPRESSION: 1. No evidence of deep venous thrombosis is seen.
--- NOTE | 2024-08-09 12:53 | PN ---
[facility] PROGRESS NOTE Date of Service: Aug 09, 2024 Time of Service: 12:45 SUBJECTIVE: Has been transitioned to nasal cannula. She was saturating well. No new complaints or concerns. No acute events reported overnight. 08/05/24 patient was seen and examined. Case discussed with the RN. She denies any chest pain no shortness a breath. No acute overnight events 08/06/24 patient was seen and examined. Case discussed with the RN. appreciate pulmonology/continue respiratory care/follow labs 08/07 Morbidly obese patient still dependent on oxygen Patient is still SOB. We will request PT to eval and treat. 08/08 patient was followed up today. Patient is obviously dependent on oxygen. She is on 3 L via nasal cannula. Desaturates even at rest. 08/09 followed up today, she continues on oxygen supplementation, BiPAP at night. Patient we will be working with physical therapy, plan is for her to have BiPAP at home. Unfortunately patient is self pay. REVIEW OF SYSTEMS CONSTITUTIONAL: Denies fevers, chills, or night sweats. No unintentional weight loss reported. NEUROLOGICAL: Denies headache, amaurosis fugax, motor weakness, sensory deficit, vertigo/spinning sensation, gait abnormalities, or tremors. ENT: No hearing loss, otalgia, otorrhea, rhinitis, rhinorrhea, hoarseness, or sore throat. CARDIOVASCULAR: Denies any exertional angina, dyspnea on exertion, orthopnea, paroxysmal nocturnal dyspnea, palpitations, life-threatening arrhythmias, claudication. PULMONARY: Denies any shortness of breath, cough, phlegm/sputum, hemoptysis, pleuritic chest pain. SLEEP: Denies morning headaches, daytime somnolence or napping. Denies difficulty falling asleep, staying asleep, waking from sleep. Denies knowledge of snoring. GASTROINTESTINAL: Denies any type of dysphagia to either liquids or solids. Denies nausea, vomiting, pyrosis, early satiety, abdominal pain, diarrhea, constipation, or changes in stool consistency or caliber. Denies coffee-ground emesis, hematemesis, hematochezia, or melanotic stools. GENITOURINARY: Denies frequency, urgency, nocturia, hematuria or incontinence (Storage/Irritative symptoms.) Low urinary stream, straining to void, urinary intermittency or hesitancy, splitting of the voiding stream, terminal dribbling. ENDOCRINOLOGIC: Denies polyuria, polydipsia, polyphagia or heat/cold intolerances. HEMATOLOGIC: Denies thrombophilia/previous clots, or coagulopathy/bleeding disorders. ONCOLOGIC: Denies personal history of malignancy. DERMATOLOGIC: Denies rashes or pruritus. PSYCHIATRIC: Denies any suicidal or homicidal ideation. Denies hallucinations. PHYSICAL EXAM GENERAL APPEARANCE: The patient is awake, alert, and oriented, in no acute cardiopulmonary distress. NEUROLOGICAL: Cranial nerves II-XII grossly intact. Motor is 5/5 in bilateral upper and lower extremities proximal to distal. No sensory deficits. HEENT: Face is symmetric. Pupils are equal and reactive. Extraocular movements are intact. NECK: Supple. No JVD. No thyromegaly. No submental, submandibular, pre-/postauricular, occipital or supraclavicular lymphadenopathy. CHEST: Normal chest expansion. No Telemetry. LUNGS: Absence of any rales, rhonchi or any wheezing. CARDIOVASCULAR: Regular. S1 and S2 normal. No appreciable rubs, murmurs or gallops. ABDOMEN: Soft, nontender, and nondistended. There is no rebound, voluntary guarding, or rigidity. : Deferred. No Palacio. EXTREMITIES: Non-edematous and not cyanotic. No clubbing. Good capillary refill. SKIN: No skin breakdown. Vital Signs (last 8hr) Date Time Temp Pulse Resp B/P (MAP) Pulse Ox O2 Delivery O2 Flow Rate FiO2 08/09/24 08:30 85 18 N/Cannula Low lpm 3.0 32 08/09/24 08:00 97.9 74 19 141/76 93 Room Air 08/09/24 06:56 82 20 LABS: Laboratory: Test 08/08/24 12:32 08/08/24 06:15 Range/Units Blood Gas Specimen Type Arterial Arterial Blood pH 7.365 7.350-7.450 Arterial Blood Partial Pressure O2 66.3 L 83.0-108.0 mmHg Arterial Blood HCO3 37.6 H 21.0-28.0 mmol/L Arterial Blood Oxygen Saturation 91.8 L 94.0-98.0 % Arterial Blood Base Excess 9.3 H -2.0-3.0 mmol/L Blood Gas Temperature 37.0 35.5-37.0 CELSIUS Blood Gas Flow-by 3.00 0.00-15.00 L/min Blood Gas Vent Mode 3L NC ROOM AIR FiO2 32.0 % Blood Gas Specimen Comment JANET RN RR White Blood Count 6.3 4.8-10.8 K/uL Red Blood Count 5.34 4.00-5.50 MIL/uL Hemoglobin 13.2 12.0-16.0 g/dL Hematocrit 45.1 36-48 % Mean Corpuscular Volume 84.5 79-99 fL Mean Corpuscular Hemoglobin 24.7 L 27.0-33.0 pg Mean Corpuscular Hemoglobin Concent 29.3 L 32.0-36.0 g/dL Red Cell Distribution Width 17.5 H 11.0-15.5 % Platelet Count 209 130-400 K/uL Mean Platelet Volume 10.4 7.5-10.5 fL Immature Granulocyte % (Auto) 0.3 0-1 % Neutrophils (%) (Auto) 56.9 40.0-77.0 % Lymphocytes (%) (Auto) 30.3 21.0-51.0 % Monocytes (%) (Auto) 10.3 3.0-13.0 % Eosinophils (%) (Auto) 1.7 0.0-8.0 % Basophils (%) (Auto) 0.5 0.0-5.0 % Neutrophils # (Auto) 3.6 1.8-7.7 K/uL Lymphocytes # (Auto) 1.9 1.0-4.8 K/uL Monocytes # (Auto) 0.7 0.1-1.0 K/uL Eosinophils # (Auto) 0.11 0.00-0.70 K/uL Basophils # (Auto) 0.03 0.00-0.20 K/uL Absolute Immature Granulocyte (auto 0.02 0-1 K/uL Nucleated Red Blood Cells 0.0 0.0-0.19 % Sodium Level 142 136-145 mmol/L Potassium Level 3.8 3.5-5.1 mmol/L Chloride Level 103 101-111 mmol/L Carbon Dioxide Level 38 H 21-32 mmol/L Blood Urea Nitrogen 23 H 7-18 mg/dL Creatinine 0.7 0.5-1.0 mg/dL Glomerular Filtration Rate Calc 103 >90 mL/min Random Glucose 77 70-105 mg/dL Total Calcium 8.5 8.5-10.1 mg/dL Total Bilirubin 0.7 0.2-1.0 mg/dL Aspartate Amino Transf (AST/SGOT) 18 10-37 U/L Alanine Aminotransferase (ALT/SGPT) 27 12-78 U/L Alkaline Phosphatase 55 50-136 U/L B-Type Natriuretic Peptide 32 0-100 pg/mL Total Protein 6.3 6.0-8.3 g/dL Albumin 2.7 L 3.5-5.0 g/dL Current Medications Medications (Trade) Dose Ordered Sig/Kiet Route PRN Reason Start Time Stop Time Status Last Admin Dose Admin Acetaminophen (TYLenol 325MG TAB) 650 mg Q6H PRN PO TEMPERATURE GREATER THAN 101.5 08/03/24 00:00 09/02/24 00:00 08/06/24 20:56 650 MG Albuterol (DUOneb) 1 UDVIAL [id number] IH 08/03/24 00:00 09/02/24 00:00 08/09/24 11:13 1 UDVIAL Aspirin (Aspirin 81mg Ec Tab) 81 mg DAILY PO 08/03/24 09:00 09/02/24 08:59 08/09/24 08:53 81 MG Ceftriaxone Sodium (ROCEphine 1G INJ) 1 gm Q24H IVPB 08/03/24 00:00 08/13/24 00:00 08/09/24 00:19 1 GM Doxycycline Hyclate 250 ml @ 125 mls/hr Q12H IV 08/03/24 00:00 08/13/24 00:00 08/09/24 01:14 125 MLS/HR Enoxaparin Sodium (Lovenox) 40 mg BID SQ 08/08/24 21:00 09/02/24 20:59 08/09/24 08:54 40 MG Enoxaparin Sodium (Lovenox) 40 mg DAILY SQ 08/03/24 09:00 08/08/24 14:34 DC 08/08/24 08:52 40 MG Famotidine (Pepcid 20mg Tab) 20 mg DAILY PO 08/03/24 09:00 09/02/24 08:59 08/09/24 08:53 20 MG Hydralazine HCl (APRESOLine 20MG INJ) 10 mg Q6H PRN IV For:SBP above 160;DBP above 90 08/03/24 00:00 09/02/24 00:00 Lactated Ringer's 1,000 ml @ 75 mls/hr [id number] IV 08/03/24 00:00 08/04/24 14:28 DC 08/04/24 01:43 75 MLS/HR Methylprednisolone Sodium Succinate (Solu-medROL 40MG) 40 mg Q8H IVP 08/03/24 06:00 08/07/24 12:11 DC 08/07/24 05:32 40 MG Morphine Sulfate (morPHINE 2MG SYG) 2 mg Q4H PRN IVP SEVERE PAIN (7-10) 08/02/24 23:45 08/08/24 02:44 DC Nitroglycerin (Nitroglycerin 1gm Oint) 0.5 inch Q8H TD 08/03/24 00:00 09/02/24 00:00 08/09/24 08:54 0.5 INCH Nitroglycerin (Nitrostat) 0.4 mg AD PRN SL CHEST PAIN 08/02/24 22:30 09/01/24 22:29 Ondansetron HCl (zoFRAN 4MG INJ) 4 mg Q6H PRN IV NAUSEA/VOMITING 08/03/24 00:00 09/02/24 00:00 DIAGNOSTICS / RADIOLOGY: [ ] ASSESSMENT: Acute on chronic hypercarbic/hypoxemic respiratory failure, POA Obesity hypoventilation syndrome, POA Obstructive sleep apnea, POA Chest pain, POA Pneumonia possibly due to Gram-negative and or Gram positive bacteria, POA PLAN: Patient will remain admitted as she continues to be oxygen dependent. Due to hypercapnic respiratory failure patient is high-risk for decompression and we will benefit with trilogy at home. Unfortunately this patient has no insurance so we will await for case management to arrange for Corrie. For now we will continue with current management Repeat labs tomorrow Continue with GI and DVT prophylaxis Discussed plan with the patient and daughter Paula via telephone call, all questions addressed, they verbalized understanding and is in agreement with the plan Case discussed with Dr. Hatch, above plan was formulated ATTESTATION BY PHYSICIAN I have seen and examined the patient. I reviewed the documentation, medical decision making, and treatment plan as noted by the mid-level provider above. I agree with the findings and plan of care. YUMIKO HATCH MD, JANICE B AGPCNP Aug 09, 2024 12:53
--- NOTE | 2024-08-09 17:16 | PN ---
[facility] PROGRESS NOTE Date Patient Seen: Aug 09, 2024 Time of Visit: 17:16 Supervising Physician: Dr. Frandy Blue Primary Care Physician: Outpatient Specialists: [ ] Inpatient Consults: ADÁN PROBLEM LIST: Acute hypercarbic, hypoxemic respiratory failure on admission Severe morbid obesity, BMI 85.8 Obesity hypoventilation syndrome Obstructive sleep apnea Tobacco use disorder Chest pain on admission Hypertension INTERVAL HISTORY: 08/06/2024 patient is awake, alert, well oriented , not in distress no fever, extremely obese , still waiting for arrangement for Non invasive ventilator support, otherwise, no new issues reported. 08/07/2024 Patient is a extremely obese female patient with persistent acute on chronic hypercapnic hypoxic respiratory failure secondary to obesity hypoventilation syndrome, obesity, obstructive sleep apnea continues to be on oxygen support and CM working in all arrangements for NIV equipment , condition and plan of care has been explained to her Daughter Paula over the phone, patient and daughter verbalized understanding and agree with plan of care. 08/08/2024 Patient is awake, alert, well oriented, still on oxygen via nasal cannula waiting for trilogy arrangements per Case management, still hypercapnia, high risk of decompensation, denies fever, chills, nausea or vomiting, we will continue monitoring closely. 08/09/2024 patient is AAO x3, evaluated at bedside today. She currently remains on 3 L nasal cannula at this time. No complaints of discomfort or pain. Currently pending case management updates regarding trilogy delivery. No changes being made from a pulmonary standpoint at this time. We will continue to follow the patient during this admission pending further updates from case management. REVIEW OF SYSTEMS: 12 point ROS reviewed with patient. Pertinent positives mentioned above. Otherwise negative. PHYSICAL EXAM: GENERAL: alert, weak, awake oriented x 3 HEENT: EOMI, Sclera non icteric, moist mucosa NECK: Supple, no JVD, trachea midline LUNGS: decreased breath sounds bilaterally, no rhonchi, some wheezing HEART: Regular rate and rhythm. Normal S1 and S2, without murmurs ABD: Abdomen soft, nontender. Bowel sounds present EXT: No clubbing cyanosis or edema NEURO: Alert and oriented to person, follows commands Vital Signs (last 8hr) Date Time Temp Pulse Resp B/P (MAP) Pulse Ox O2 Delivery O2 Flow Rate FiO2 08/09/24 12:39 98.1 76 19 143/74 94 Nasal Cannula 2.0 08/09/24 11:13 77 20 LABS: Hematology Labs: Test 08/08/24 06:15 Range/Units White Blood Count 6.3 4.8-10.8 K/uL Red Blood Count 5.34 4.00-5.50 MIL/uL Hemoglobin 13.2 12.0-16.0 g/dL Hematocrit 45.1 36-48 % Mean Corpuscular Volume 84.5 79-99 fL Mean Corpuscular Hemoglobin 24.7 L 27.0-33.0 pg Mean Corpuscular Hemoglobin Concent 29.3 L 32.0-36.0 g/dL Red Cell Distribution Width 17.5 H 11.0-15.5 % Platelet Count 209 130-400 K/uL Mean Platelet Volume 10.4 7.5-10.5 fL Immature Granulocyte % (Auto) 0.3 0-1 % Neutrophils (%) (Auto) 56.9 40.0-77.0 % Lymphocytes (%) (Auto) 30.3 21.0-51.0 % Monocytes (%) (Auto) 10.3 3.0-13.0 % Eosinophils (%) (Auto) 1.7 0.0-8.0 % Basophils (%) (Auto) 0.5 0.0-5.0 % Neutrophils # (Auto) 3.6 1.8-7.7 K/uL Lymphocytes # (Auto) 1.9 1.0-4.8 K/uL Monocytes # (Auto) 0.7 0.1-1.0 K/uL Eosinophils # (Auto) 0.11 0.00-0.70 K/uL Basophils # (Auto) 0.03 0.00-0.20 K/uL Absolute Immature Granulocyte (auto 0.02 0-1 K/uL Nucleated Red Blood Cells 0.0 0.0-0.19 % Chemistry Labs: Test 08/08/24 06:15 Range/Units Sodium Level 142 136-145 mmol/L Potassium Level 3.8 3.5-5.1 mmol/L Chloride Level 103 101-111 mmol/L Carbon Dioxide Level 38 H 21-32 mmol/L Blood Urea Nitrogen 23 H 7-18 mg/dL Creatinine 0.7 0.5-1.0 mg/dL Glomerular Filtration Rate Calc 103 >90 mL/min Random Glucose 77 70-105 mg/dL Total Calcium 8.5 8.5-10.1 mg/dL Total Bilirubin 0.7 0.2-1.0 mg/dL Aspartate Amino Transf (AST/SGOT) 18 10-37 U/L Alanine Aminotransferase (ALT/SGPT) 27 12-78 U/L Alkaline Phosphatase 55 50-136 U/L B-Type Natriuretic Peptide 32 0-100 pg/mL Total Protein 6.3 6.0-8.3 g/dL Albumin 2.7 L 3.5-5.0 g/dL DIAGNOSTICS / RADIOLOGY RESULTS: [ ] PLAN Arrangement for Non invasive ventilator support continue on oxygen continue with BiPAP intermittently continue IV antibiotics follow results from cultures NEURO: Minimize central acting medications as possible. Maintain fall precautions, adequate lighting during the day PULMONARY: Supplemental 02 as needed. Maintain aspiration precautions at all times CARDIOVASCULAR: Follow hemodynamics. Vital signs per facility protocol GI & NUTRITION: Continue with nutritional support. Continue stool softeners and laxatives as needed. KIDNEYS & ELECTROLYTES: Strict monitoring of intake, output and overall fluid balance. Avoid nephrotoxic medications to the extent possible. Medications to be dosed according to renal function. Monitor electrolytes and replace as needed ENDOCRINE: Maintain blood glucose between 100-180 at all times. Hypoglycemia protocol in place INFECTIOUS DISEASE: Trend temperature, WBC and procalcitonin level Follow cultures, deescalate antibiotics as soon as possible. Panculture if new onset fever ONCOLOGY/HEMATOLOGY/COAGULATION: Monitor for s/s of bleeding Monitor hemoglobin, coagulation studies as needed SKIN: Pressure ulcer prevention per facility protocol Specialty mattress ORTHO/REHAB: Continue PT/OT Prophylaxis: Continue GI and DVT prophylaxis Code Status: Full Resuscitation Disposition: TBD Patient care spent time exceeds more than 35 minutes CARIN CHAO Aug 09, 2024 17:16
[2024-08-10] VITALS (14 sets, daily range): BP systolic 113–137; BP diastolic 52–73; PULSE 75–102; RESP 18–22; TEMP 97.9–98.5; O2SAT 88–95
[2024-08-10 04:47] LABS: HEMATOCRIT 44.3 % (36-48); MEAN CORPUSCULAR HEMOGLOBIN 25.3 pg (27.0-33.0); MEAN CORPUSCULAR HGB CONC 29.6 g/dL (32.0-36.0); MEAN CORPUSCULAR VOLUME 85.5 fL (79-99); PLATELET COUNT (AUTO) 179 K/uL (130-400); RED BLOOD CELL COUNT(AUTO) 5.18 MIL/uL (4.00-5.50); RED CELL DISTRIBUTION WIDTH 17.2 % (11.0-15.5); WHITE BLOOD COUNT (AUTO) 6.2 K/uL (4.8-10.8)
[2024-08-10 04:59] LABS: CREATININE 0.5 mg/dL (0.5-1.0); POTASSIUM 4.2 mmol/L (3.5-5.1)
[2024-08-10 05:05] LABS: PLATELET MORPHOLOGY PLT CLUMPS PRESENT
--- NOTE | 2024-08-10 10:04 | PN ---
[facility] PROGRESS NOTE Date of Service: Aug 10, 2024 Time of Service: 10:01 SUBJECTIVE: Has been transitioned to nasal cannula. She was saturating well. No new complaints or concerns. No acute events reported overnight. 08/05/24 patient was seen and examined. Case discussed with the RN. She denies any chest pain no shortness a breath. No acute overnight events 08/06/24 patient was seen and examined. Case discussed with the RN. appreciate pulmonology/continue respiratory care/follow labs 08/07 Morbidly obese patient still dependent on oxygen Patient is still SOB. We will request PT to eval and treat. 08/08 patient was followed up today. Patient is obviously dependent on oxygen. She is on 3 L via nasal cannula. Desaturates even at rest. 08/09 followed up today, she continues on oxygen supplementation, BiPAP at night. Patient we will be working with physical therapy, plan is for her to have BiPAP at home. Unfortunately patient is self pay. 08/10 Patient was evaluated in her room, her daughter Paula at bedside. Patient is denying any SOB. But her oxygen sat is at 94% on 4L this morning. Previously tolerating 3LNC. Discussed plan with the patient and daughter, she will need trilogy for oxygen supplementation. REVIEW OF SYSTEMS CONSTITUTIONAL: Denies fevers, chills, or night sweats. No unintentional weight loss reported. NEUROLOGICAL: Denies headache, amaurosis fugax, motor weakness, sensory deficit, vertigo/spinning sensation, gait abnormalities, or tremors. ENT: No hearing loss, otalgia, otorrhea, rhinitis, rhinorrhea, hoarseness, or sore throat. CARDIOVASCULAR: Denies any exertional angina, dyspnea on exertion, orthopnea, paroxysmal nocturnal dyspnea, palpitations, life-threatening arrhythmias, claudication. PULMONARY: Denies any shortness of breath, cough, phlegm/sputum, hemoptysis, pleuritic chest pain. SLEEP: Denies morning headaches, daytime somnolence or napping. Denies difficulty falling asleep, staying asleep, waking from sleep. Denies knowledge of snoring. GASTROINTESTINAL: Denies any type of dysphagia to either liquids or solids. Denies nausea, vomiting, pyrosis, early satiety, abdominal pain, diarrhea, constipation, or changes in stool consistency or caliber. Denies coffee-ground emesis, hematemesis, hematochezia, or melanotic stools. GENITOURINARY: Denies frequency, urgency, nocturia, hematuria or incontinence (Storage/Irritative symptoms.) Low urinary stream, straining to void, urinary intermittency or hesitancy, splitting of the voiding stream, terminal dribbling. ENDOCRINOLOGIC: Denies polyuria, polydipsia, polyphagia or heat/cold intolerances. HEMATOLOGIC: Denies thrombophilia/previous clots, or coagulopathy/bleeding disorders. ONCOLOGIC: Denies personal history of malignancy. DERMATOLOGIC: Denies rashes or pruritus. PSYCHIATRIC: Denies any suicidal or homicidal ideation. Denies hallucinations. PHYSICAL EXAM GENERAL APPEARANCE: The patient is awake, alert, and oriented, in no acute cardiopulmonary distress. NEUROLOGICAL: Cranial nerves II-XII grossly intact. Motor is 5/5 in bilateral upper and lower extremities proximal to distal. No sensory deficits. HEENT: Face is symmetric. Pupils are equal and reactive. Extraocular movements are intact. NECK: Supple. No JVD. No thyromegaly. No submental, submandibular, pre- /postauricular, occipital or supraclavicular lymphadenopathy. CHEST: Normal chest expansion. No Telemetry. LUNGS: Absence of any rales, rhonchi or any wheezing. CARDIOVASCULAR: Regular. S1 and S2 normal. No appreciable rubs, murmurs or gallops. ABDOMEN: Soft, nontender, and nondistended. There is no rebound, voluntary guarding, or rigidity. : Deferred. No Palacio. EXTREMITIES: Non-edematous and not cyanotic. No clubbing. Good capillary refill. SKIN: No skin breakdown. Vital Signs (last 8hr) Date Time Temp Pulse Resp B/P (MAP) Pulse Ox O2 Delivery O2 Flow Rate FiO2 08/10/24 08:00 98.4 82 18 122/71 94 Nasal Cannula 4.0 08/10/24 06:28 102 22 N/Cannula Low lpm 4.0 36 08/10/24 06:26 102 22 08/10/24 04:00 98.4 76 19 122/60 93 Nasal Cannula 3.0 LABS: Laboratory: Test 08/10/24 04:23 08/08/24 12:32 Range/Units White Blood Count 6.2 4.8-10.8 K/uL Red Blood Count 5.18 4.00-5.50 MIL/uL Hemoglobin 13.1 12.0-16.0 g/dL Hematocrit 44.3 36-48 % Mean Corpuscular Volume 85.5 79-99 fL Mean Corpuscular Hemoglobin 25.3 L 27.0-33.0 pg Mean Corpuscular Hemoglobin Concent 29.6 L 32.0-36.0 g/dL Red Cell Distribution Width 17.2 H 11.0-15.5 % Platelet Count 179 130-400 K/uL Mean Platelet Volume 10.4 7.5-10.5 fL Nucleated Red Blood Cells 0.0 0.0-0.19 % Platelet Morphology PLT CLUMPS PRESENT Red Blood Cell Morphology ANISO 1+ Sodium Level 142 136-145 mmol/L Potassium Level 4.2 3.5-5.1 mmol/L Chloride Level 104 101-111 mmol/L Carbon Dioxide Level 41 *H 21-32 mmol/L Blood Urea Nitrogen 14 7-18 mg/dL Creatinine 0.5 0.5-1.0 mg/dL Glomerular Filtration Rate Calc 112 >90 mL/min Random Glucose 95 70-105 mg/dL Total Calcium 8.3 L 8.5-10.1 mg/dL Blood Gas Specimen Type Arterial Arterial Blood pH 7.365 7.350-7.450 Arterial Blood Partial Pressure O2 66.3 L 83.0-108.0 mmHg Arterial Blood HCO3 37.6 H 21.0-28.0 mmol/L Arterial Blood Oxygen Saturation 91.8 L 94.0-98.0 % Arterial Blood Base Excess 9.3 H -2.0-3.0 mmol/L Blood Gas Temperature 37.0 35.5-37.0 CELSIUS Blood Gas Flow-by 3.00 0.00-15.00 L/min Blood Gas Vent Mode 3L NC ROOM AIR FiO2 32.0 % Blood Gas Specimen Comment JANET GUSTAFSON RR Current Medications Medications (Trade) Dose Ordered Sig/Kiet Route PRN Reason Start Time Stop Time Status Last Admin Dose Admin Acetaminophen (TYLenol 325MG TAB) 650 mg Q6H PRN PO TEMPERATURE GREATER THAN 101.5 08/03/24 00:00 09/02/24 00:00 08/06/24 20:56 650 MG Albuterol (DUOneb) 1 UDVIAL [id number] IH 08/03/24 00:00 09/02/24 00:00 08/10/24 06:26 1 UDVIAL Aspirin (Aspirin 81mg Ec Tab) 81 mg DAILY PO 08/03/24 09:00 09/02/24 08:59 08/10/24 08:20 81 MG Ceftriaxone Sodium (ROCEphine 1G INJ) 1 gm Q24H IVPB 08/03/24 00:00 08/13/24 00:00 08/10/24 00:07 1 GM Doxycycline Hyclate 250 ml @ 125 mls/hr Q12H IV 08/03/24 00:00 08/13/24 00:00 08/10/24 01:04 125 MLS/HR Enoxaparin Sodium (Lovenox) 40 mg BID SQ 08/08/24 21:00 09/02/24 20:59 08/10/24 08:23 40 MG Enoxaparin Sodium (Lovenox) 40 mg DAILY SQ 08/03/24 09:00 08/08/24 14:34 DC 08/08/24 08:52 40 MG Famotidine (Pepcid 20mg Tab) 20 mg DAILY PO 08/03/24 09:00 09/02/24 08:59 08/10/24 08:20 20 MG Hydralazine HCl (APRESOLine 20MG INJ) 10 mg Q6H PRN IV For:SBP above 160;DBP above 90 08/03/24 00:00 09/02/24 00:00 Lactated Ringer's 1,000 ml @ 75 mls/hr [id number] IV 08/03/24 00:00 08/04/24 14:28 DC 08/04/24 01:43 75 MLS/HR Methylprednisolone Sodium Succinate (Solu-medROL 40MG) 40 mg Q8H IVP 08/03/24 06:00 08/07/24 12:11 DC 08/07/24 05:32 40 MG Morphine Sulfate (morPHINE 2MG SYG) 2 mg Q4H PRN IVP SEVERE PAIN (7-10) 08/02/24 23:45 08/08/24 02:44 DC Nitroglycerin (Nitroglycerin 1gm Oint) 0.5 inch Q8H TD 08/03/24 00:00 09/02/24 00:00 08/10/24 08:20 0.5 INCH Nitroglycerin (Nitrostat) 0.4 mg AD PRN SL CHEST PAIN 08/02/24 22:30 09/01/24 22:29 Ondansetron HCl (zoFRAN 4MG INJ) 4 mg Q6H PRN IV NAUSEA/VOMITING 08/03/24 00:00 09/02/24 00:00 DIAGNOSTICS / RADIOLOGY: [ ] ASSESSMENT: Acute on chronic hypercarbic/hypoxemic respiratory failure, POA Obesity hypoventilation syndrome, POA Obstructive sleep apnea, POA Chest pain, POA Pneumonia possibly due to Gram-negative and or Gram positive bacteria, POA PLAN: Patient will remain admitted as she continues to be oxygen dependent. Due to hypercapnic respiratory failure patient is high-risk for decompression and we will benefit with trilogy at home. Unfortunately this patient has no insurance so we will await for case management to arrange for Corrie. For now we will continue with current management Repeat labs tomorrow Continue with GI and DVT prophylaxis Discussed plan with the patient and daughter Paula, all questions addressed, they verbalized understanding and is in agreement with the plan Case discussed with Dr. Hatch, above plan was formulated Time Spend: 30 mins ATTESTATION BY PHYSICIAN I have seen and examined the patient. I reviewed the documentation, medical decision making, and treatment plan as noted by the mid-level provider above. I agree with the findings and plan of care. YUMIKO HATCH MD, JANICE B AGMICHAEL Aug 10, 2024 10:03
[2024-08-10 10:41] LABS: ABG BASE EXCESS 9.1 mmol/L (-2.0-3.0); ABG HCO3 36.8 mmol/L (21.0-28.0); ABG OXYGEN SATURATION 85.3 % (94.0-98.0); ABG PCO2 63 mmHg (32-45); ABG PH 7.383 (7.350-7.450); DEVICE COMMENT RR RN; PO2, ARTERIAL BG 52.1 mmHg (83.0-108.0); VENT MODE, BG RA (ROOM AIR)
--- NOTE | 2024-08-10 16:15 | PN ---
[facility] PROGRESS NOTE Date Patient Seen: Aug 10, 2024 Time of Visit: 16:14 Supervising Physician: Dr. Frandy Blue Primary Care Physician: Outpatient Specialists: [ ] Inpatient Consults: ADÁN PROBLEM LIST: Acute hypercarbic, hypoxemic respiratory failure on admission Severe morbid obesity, BMI 85.8 Obesity hypoventilation syndrome Obstructive sleep apnea Tobacco use disorder Chest pain on admission Hypertension INTERVAL HISTORY: 08/06/2024 patient is awake, alert, well oriented , not in distress no fever, extremely obese , still waiting for arrangement for Non invasive ventilator support, otherwise, no new issues reported. 08/07/2024 Patient is a extremely obese female patient with persistent acute on chronic hypercapnic hypoxic respiratory failure secondary to obesity hypoventilation syndrome, obesity, obstructive sleep apnea continues to be on oxygen support and CM working in all arrangements for NIV equipment , condition and plan of care has been explained to her Daughter Paula over the phone, patient and daughter verbalized understanding and agree with plan of care. 08/08/2024 Patient is awake, alert, well oriented, still on oxygen via nasal cannula waiting for trilogy arrangements per Case management, still hypercapnia, high risk of decompensation, denies fever, chills, nausea or vomiting, we will continue monitoring closely. 08/09/2024 patient is AAO x3, evaluated at bedside today. She currently remains on 3 L nasal cannula at this time. No complaints of discomfort or pain. Currently pending case management updates regarding trilogy delivery. No changes being made from a pulmonary standpoint at this time. We will continue to follow the patient during this admission pending further updates from case management. 08/10/2024 patient evaluated at bedside today, she continues on 4 L nasal cannula at this time. Patient remains hypercapnic, pending trilogy delivery and updates from case management. Patient denies any acute distress, we will continue to follow this patient. No changes being made from a pulmonary perspective. Pending updates from case management. REVIEW OF SYSTEMS: 12 point ROS reviewed with patient. Pertinent positives mentioned above. Otherwise negative. PHYSICAL EXAM: GENERAL: alert, weak, awake oriented x 3 HEENT: EOMI, Sclera non icteric, moist mucosa NECK: Supple, no JVD, trachea midline LUNGS: decreased breath sounds bilaterally, no rhonchi, some wheezing HEART: Regular rate and rhythm. Normal S1 and S2, without murmurs ABD: Abdomen soft, nontender. Bowel sounds present EXT: No clubbing cyanosis or edema NEURO: Alert and oriented to person, follows commands Vital Signs (last 8hr) Date Time Temp Pulse Resp B/P (MAP) Pulse Ox O2 Delivery O2 Flow Rate FiO2 08/10/24 11:08 76 18 08/10/24 10:37 79 18 21 76 18 28 LABS: Hematology Labs: Test 08/10/24 04:23 Range/Units White Blood Count 6.2 4.8-10.8 K/uL Red Blood Count 5.18 4.00-5.50 MIL/uL Hemoglobin 13.1 12.0-16.0 g/dL Hematocrit 44.3 36-48 % Mean Corpuscular Volume 85.5 79-99 fL Mean Corpuscular Hemoglobin 25.3 L 27.0-33.0 pg Mean Corpuscular Hemoglobin Concent 29.6 L 32.0-36.0 g/dL Red Cell Distribution Width 17.2 H 11.0-15.5 % Platelet Count 179 130-400 K/uL Mean Platelet Volume 10.4 7.5-10.5 fL Nucleated Red Blood Cells 0.0 0.0-0.19 % Platelet Morphology PLT CLUMPS PRESENT Red Blood Cell Morphology ANISO 1+ Chemistry Labs: Test 08/10/24 04:23 Range/Units Sodium Level 142 136-145 mmol/L Potassium Level 4.2 3.5-5.1 mmol/L Chloride Level 104 101-111 mmol/L Carbon Dioxide Level 41 *H 21-32 mmol/L Blood Urea Nitrogen 14 7-18 mg/dL Creatinine 0.5 0.5-1.0 mg/dL Glomerular Filtration Rate Calc 112 >90 mL/min Random Glucose 95 70-105 mg/dL Total Calcium 8.3 L 8.5-10.1 mg/dL DIAGNOSTICS / RADIOLOGY RESULTS: [ ] PLAN Arrangement for Non invasive ventilator support continue on oxygen continue with BiPAP intermittently continue IV antibiotics follow results from cultures NEURO: Minimize central acting medications as possible. Maintain fall precautions, adequate lighting during the day PULMONARY: Supplemental 02 as needed. Maintain aspiration precautions at all times CARDIOVASCULAR: Follow hemodynamics. Vital signs per facility protocol GI & NUTRITION: Continue with nutritional support. Continue stool softeners and laxatives as needed. KIDNEYS & ELECTROLYTES: Strict monitoring of intake, output and overall fluid balance. Avoid nephrotoxic medications to the extent possible. Medications to be dosed according to renal function. Monitor electrolytes and replace as needed ENDOCRINE: Maintain blood glucose between 100-180 at all times. Hypoglycemia protocol in place INFECTIOUS DISEASE: Trend temperature, WBC and procalcitonin level Follow cultures, deescalate antibiotics as soon as possible. Panculture if new onset fever ONCOLOGY/HEMATOLOGY/COAGULATION: Monitor for s/s of bleeding Monitor hemoglobin, coagulation studies as needed SKIN: Pressure ulcer prevention per facility protocol Specialty mattress ORTHO/REHAB: Continue PT/OT Prophylaxis: Continue GI and DVT prophylaxis Code Status: Full Resuscitation Disposition: TBD Patient care spent time exceeds more than 35 minutes CARIN CHAO Aug 10, 2024 16:15
[2024-08-11] VITALS (13 sets, daily range): BP systolic 126–137; BP diastolic 63–77; PULSE 74–88; RESP 16–22; TEMP 97.6–98.8; O2SAT 88–96
[2024-08-11 04:53] LABS: HEMATOCRIT 46.3 % (36-48); MEAN CORPUSCULAR HEMOGLOBIN 24.9 pg (27.0-33.0); MEAN CORPUSCULAR HGB CONC 28.5 g/dL (32.0-36.0); MEAN CORPUSCULAR VOLUME 87.4 fL (79-99); RED BLOOD CELL COUNT(AUTO) 5.3 MIL/uL (4.00-5.50); RED CELL DISTRIBUTION WIDTH 17.2 % (11.0-15.5); WHITE BLOOD COUNT (AUTO) 6.6 K/uL (4.8-10.8)
[2024-08-11 05:08] LABS: CREATININE 0.5 mg/dL (0.5-1.0)
--- NOTE | 2024-08-11 13:38 | PN ---
[facility] PROGRESS NOTE Date of Service: Aug 11, 2024 Time of Service: 13:35 SUBJECTIVE: Has been transitioned to nasal cannula. She was saturating well. No new complaints or concerns. No acute events reported overnight. 08/05/24 patient was seen and examined. Case discussed with the RN. She denies any chest pain no shortness a breath. No acute overnight events 08/06/24 patient was seen and examined. Case discussed with the RN. appreciate pulmonology/continue respiratory care/follow labs 08/07 Morbidly obese patient still dependent on oxygen Patient is still SOB. We will request PT to eval and treat. 08/08 patient was followed up today. Patient is obviously dependent on oxygen. She is on 3 L via nasal cannula. Desaturates even at rest. 08/09 followed up today, she continues on oxygen supplementation, BiPAP at night. Patient we will be working with physical therapy, plan is for her to have BiPAP at home. Unfortunately patient is self pay. 08/10 Patient was evaluated in her room, her daughter Paula at bedside. Patient is denying any SOB. But her oxygen sat is at 94% on 4L this morning. Previously tolerating 3LNC. Discussed plan with the patient and daughter, she will need trilogy for oxygen supplementation. 08/11 patient continues with oxygen supplementation. Overnight she continues with nasal cannula at times on room air. Patient denies shortness of breath at this time though she was at rest. But patient definitely becomes hypoxic during exertion. Ice Cutter recommending BiPAP. She continues on 4 L pending trilogy, patient remains hypercapnic. REVIEW OF SYSTEMS CONSTITUTIONAL: Denies fevers, chills, or night sweats. No unintentional weight loss reported. NEUROLOGICAL: Denies headache, amaurosis fugax, motor weakness, sensory deficit, vertigo/spinning sensation, gait abnormalities, or tremors. ENT: No hearing loss, otalgia, otorrhea, rhinitis, rhinorrhea, hoarseness, or sore throat. CARDIOVASCULAR: Denies any exertional angina, dyspnea on exertion, orthopnea, paroxysmal nocturnal dyspnea, palpitations, life-threatening arrhythmias, claudication. PULMONARY: Denies any shortness of breath, cough, phlegm/sputum, hemoptysis, pleuritic chest pain. SLEEP: Denies morning headaches, daytime somnolence or napping. Denies difficulty falling asleep, staying asleep, waking from sleep. Denies knowledge of snoring. GASTROINTESTINAL: Denies any type of dysphagia to either liquids or solids. Denies nausea, vomiting, pyrosis, early satiety, abdominal pain, diarrhea, constipation, or changes in stool consistency or caliber. Denies coffee-ground emesis, hematemesis, hematochezia, or melanotic stools. GENITOURINARY: Denies frequency, urgency, nocturia, hematuria or incontinence (Storage/Irritative symptoms.) Low urinary stream, straining to void, urinary intermittency or hesitancy, splitting of the voiding stream, terminal dribbling. ENDOCRINOLOGIC: Denies polyuria, polydipsia, polyphagia or heat/cold intolerances. HEMATOLOGIC: Denies thrombophilia/previous clots, or coagulopathy/bleeding disorders. ONCOLOGIC: Denies personal history of malignancy. DERMATOLOGIC: Denies rashes or pruritus. PSYCHIATRIC: Denies any suicidal or homicidal ideation. Denies hallucinations. PHYSICAL EXAM GENERAL APPEARANCE: The patient is awake, alert, and oriented, in no acute cardiopulmonary distress. NEUROLOGICAL: Cranial nerves II-XII grossly intact. Motor is 5/5 in bilateral upper and lower extremities proximal to distal. No sensory deficits. HEENT: Face is symmetric. Pupils are equal and reactive. Extraocular movements are intact. NECK: Supple. No JVD. No thyromegaly. No submental, submandibular, pre- /postauricular, occipital or supraclavicular lymphadenopathy. CHEST: Normal chest expansion. No Telemetry. LUNGS: Absence of any rales, rhonchi or any wheezing. CARDIOVASCULAR: Regular. S1 and S2 normal. No appreciable rubs, murmurs or gallops. ABDOMEN: Soft, nontender, and nondistended. There is no rebound, voluntary guarding, or rigidity. : Deferred. No Palacio. EXTREMITIES: Non-edematous and not cyanotic. No clubbing. Good capillary refill. SKIN: No skin breakdown. Vital Signs (last 8hr) Date Time Temp Pulse Resp B/P (MAP) Pulse Ox O2 Delivery O2 Flow Rate FiO2 08/11/24 10:43 96 Nasal Cannula* 2 28 08/11/24 08:00 97.9 76 16 128/77 96 Room Air 21 08/11/24 06:47 80 20 N/A Room Air 21 08/11/24 06:46 80 18 LABS: Laboratory: Test 08/11/24 04:26 08/10/24 10:39 08/10/24 04:23 Range/Units White Blood Count 6.6 4.8-10.8 K/uL Red Blood Count 5.30 4.00-5.50 MIL/uL Hemoglobin 13.2 12.0-16.0 g/dL Hematocrit 46.3 36-48 % Mean Corpuscular Volume 87.4 79-99 fL Mean Corpuscular Hemoglobin 24.9 L 27.0-33.0 pg Mean Corpuscular Hemoglobin Concent 28.5 L 32.0-36.0 g/dL Red Cell Distribution Width 17.2 H 11.0-15.5 % Platelet Count 188 130-400 K/uL Mean Platelet Volume 11.1 H 7.5-10.5 fL Nucleated Red Blood Cells 0.0 0.0-0.19 % Sodium Level 141 136-145 mmol/L Potassium Level 4.0 3.5-5.1 mmol/L Chloride Level 101 101-111 mmol/L Carbon Dioxide Level 39 H 21-32 mmol/L Blood Urea Nitrogen 10 7-18 mg/dL Creatinine 0.5 0.5-1.0 mg/dL Glomerular Filtration Rate Calc 112 >90 mL/min Random Glucose 97 70-105 mg/dL Total Calcium 8.6 8.5-10.1 mg/dL Blood Gas Specimen Type Arterial Arterial Blood pH 7.383 7.350-7.450 Arterial Blood Partial Pressure CO2 63 *H 32-45 mmHg Arterial Blood Partial Pressure O2 52.1 *L 83.0-108.0 mmHg Arterial Blood HCO3 36.8 H 21.0-28.0 mmol/L Arterial Blood Oxygen Saturation 85.3 L 94.0-98.0 % Arterial Blood Base Excess 9.1 H -2.0-3.0 mmol/L Blood Gas Temperature 37.0 35.5-37.0 CELSIUS Blood Gas Vent Mode RA ROOM AIR FiO2 21.0 % Blood Gas Specimen Comment RR RN Platelet Morphology PLT CLUMPS PRESENT Red Blood Cell Morphology ANISO 1+ Current Medications Medications (Trade) Dose Ordered Sig/Kiet Route PRN Reason Start Time Stop Time Status Last Admin Dose Admin Acetaminophen (TYLenol 325MG TAB) 650 mg Q6H PRN PO TEMPERATURE GREATER THAN 101.5 2/22/25 00:00 09/02/24 00:00 08/06/24 20:56 650 MG Albuterol (DUOneb) 1 UDVIAL [id number] IH 08/03/24 00:00 09/02/24 00:00 08/11/24 11:18 1 UDVIAL Aspirin (Aspirin 81mg Ec Tab) 81 mg DAILY PO 08/03/24 09:00 09/02/24 08:59 08/11/24 09:11 81 MG Ceftriaxone Sodium (ROCEphine 1G INJ) 1 gm Q24H IVPB 08/03/24 00:00 08/13/24 00:00 08/11/24 01:11 1 GM Doxycycline Hyclate 250 ml @ 125 mls/hr Q12H IV 08/03/24 00:00 08/13/24 00:00 08/11/24 12:51 125 MLS/HR Enoxaparin Sodium (Lovenox) 40 mg BID SQ 08/08/24 21:00 09/02/24 20:59 08/11/24 09:11 40 MG Enoxaparin Sodium (Lovenox) 40 mg DAILY SQ 08/03/24 09:00 08/08/24 14:34 DC 08/08/24 08:52 40 MG Famotidine (Pepcid 20mg Tab) 20 mg DAILY PO 08/03/24 09:00 09/02/24 08:59 08/11/24 09:11 20 MG Hydralazine HCl (APRESOLine 20MG INJ) 10 mg Q6H PRN IV For:SBP above 160;DBP above 90 08/03/24 00:00 09/02/24 00:00 Lactated Ringer's 1,000 ml @ 75 mls/hr [id number] IV 08/03/24 00:00 08/04/24 14:28 DC 08/04/24 01:43 75 MLS/HR Methylprednisolone Sodium Succinate (Solu-medROL 40MG) 40 mg Q8H IVP 08/03/24 06:00 08/07/24 12:11 DC 08/07/24 05:32 40 MG Morphine Sulfate (morPHINE 2MG SYG) 2 mg Q4H PRN IVP SEVERE PAIN (7-10) 2/21/25 23:45 08/08/24 02:44 DC Nitroglycerin (Nitroglycerin 1gm Oint) 0.5 inch Q8H TD 08/03/24 00:00 09/02/24 00:00 08/11/24 09:10 0.5 INCH Nitroglycerin (Nitrostat) 0.4 mg AD PRN SL CHEST PAIN 08/02/24 22:30 09/01/24 22:29 Ondansetron HCl (zoFRAN 4MG INJ) 4 mg Q6H PRN IV NAUSEA/VOMITING 08/03/24 00:00 09/02/24 00:00 DIAGNOSTICS / RADIOLOGY: [ ] ASSESSMENT: Acute on chronic hypercarbic/hypoxemic respiratory failure, POA Obesity hypoventilation syndrome, POA Obstructive sleep apnea, POA Chest pain, POA Pneumonia possibly due to Gram-negative and or Gram positive bacteria, POA PLAN: Patient will remain admitted as she continues to be oxygen dependent. Due to hypercapnic respiratory failure patient is high-risk for decompression and we will benefit with trilogy at home. Unfortunately this patient has no insurance so we will await for case management to arrange for Corrie. For now we will continue with current management Repeat labs tomorrow Continue with GI and DVT prophylaxis Discussed plan with the patient and daughter Paula, all questions addressed, they verbalized understanding and is in agreement with the plan Case discussed with Dr. Hatch, above plan was formulated Time Spend: 30 mins ATTESTATION BY PHYSICIAN I have seen and examined the patient. I reviewed the documentation, medical decision making, and treatment plan as noted by the mid-level provider above. I agree with the findings and plan of care. YUMIKO HATCH MD, [facility] B [facility] Aug 11, 2024 13:38
--- NOTE | 2024-08-11 13:48 | PN ---
[facility] PROGRESS NOTE Date Patient Seen: Aug 11, 2024 Time of Visit: 13:47 Supervising Physician: Dr. Frandy Blue Primary Care Physician: Outpatient Specialists: [ ] Inpatient Consults: ADÁN PROBLEM LIST: Acute hypercarbic, hypoxemic respiratory failure on admission Severe morbid obesity, BMI 85.8 Obesity hypoventilation syndrome Obstructive sleep apnea Tobacco use disorder Chest pain on admission Hypertension INTERVAL HISTORY: Patient evaluated at bedside with son present, she is currently on 2 L nasal cannula, denies any chest pains her new onset symptoms. Patient was once again advised that we are pending trilogy delivery, stated that we will hopefully be hearing back from the DME tomorrow at the start of the week. Patient had several questions regarding the process in the machine which were answered to her satisfaction. We will continue to see the patient while she remains admitted pending updates from case management regarding delivery of trilogy ventilator. REVIEW OF SYSTEMS: 12 point ROS reviewed with patient. Pertinent positives mentioned above. Otherwise negative. PHYSICAL EXAM: GENERAL: alert, weak, awake oriented x 3 HEENT: EOMI, Sclera non icteric, moist mucosa NECK: Supple, no JVD, trachea midline LUNGS: decreased breath sounds bilaterally, no rhonchi, some wheezing HEART: Regular rate and rhythm. Normal S1 and S2, without murmurs ABD: Abdomen soft, nontender. Bowel sounds present EXT: No clubbing cyanosis or edema NEURO: Alert and oriented to person, follows commands Vital Signs (last 8hr) Date Time Temp Pulse Resp B/P (MAP) Pulse Ox O2 Delivery O2 Flow Rate FiO2 08/11/24 10:43 96 Nasal Cannula* 2 28 08/11/24 08:00 97.9 76 16 128/77 96 Room Air 21 08/11/24 06:47 80 20 N/A Room Air 21 08/11/24 06:46 80 18 LABS: Hematology Labs: Test 08/11/24 04:26 08/10/24 04:23 Range/Units White Blood Count 6.6 4.8-10.8 K/uL Red Blood Count 5.30 4.00-5.50 MIL/uL Hemoglobin 13.2 12.0-16.0 g/dL Hematocrit 46.3 36-48 % Mean Corpuscular Volume 87.4 79-99 fL Mean Corpuscular Hemoglobin 24.9 L 27.0-33.0 pg Mean Corpuscular Hemoglobin Concent 28.5 L 32.0-36.0 g/dL Red Cell Distribution Width 17.2 H 11.0-15.5 % Platelet Count 188 130-400 K/uL Mean Platelet Volume 11.1 H 7.5-10.5 fL Nucleated Red Blood Cells 0.0 0.0-0.19 % Platelet Morphology PLT CLUMPS PRESENT Red Blood Cell Morphology ANISO 1+ Chemistry Labs: Test 08/11/24 04:26 Range/Units Sodium Level 141 136-145 mmol/L Potassium Level 4.0 3.5-5.1 mmol/L Chloride Level 101 101-111 mmol/L Carbon Dioxide Level 39 H 21-32 mmol/L Blood Urea Nitrogen 10 7-18 mg/dL Creatinine 0.5 0.5-1.0 mg/dL Glomerular Filtration Rate Calc 112 >90 mL/min Random Glucose 97 70-105 mg/dL Total Calcium 8.6 8.5-10.1 mg/dL DIAGNOSTICS / RADIOLOGY RESULTS: [ ] PLAN Arrangement for Non invasive ventilator support continue on oxygen continue with BiPAP intermittently continue IV antibiotics follow results from cultures NEURO: Minimize central acting medications as possible. Maintain fall precautions, adequate lighting during the day PULMONARY: Supplemental 02 as needed. Maintain aspiration precautions at all times CARDIOVASCULAR: Follow hemodynamics. Vital signs per facility protocol GI & NUTRITION: Continue with nutritional support. Continue stool softeners and laxatives as needed. KIDNEYS & ELECTROLYTES: Strict monitoring of intake, output and overall fluid balance. Avoid nephrotoxic medications to the extent possible. Medications to be dosed according to renal function. Monitor electrolytes and replace as needed ENDOCRINE: Maintain blood glucose between 100-180 at all times. Hypoglycemia protocol in place INFECTIOUS DISEASE: Trend temperature, WBC and procalcitonin level Follow cultures, deescalate antibiotics as soon as possible. Panculture if new onset fever ONCOLOGY/HEMATOLOGY/COAGULATION: Monitor for s/s of bleeding Monitor hemoglobin, coagulation studies as needed SKIN: Pressure ulcer prevention per facility protocol Specialty mattress ORTHO/REHAB: Continue PT/OT Prophylaxis: Continue GI and DVT prophylaxis Code Status: Full Resuscitation Disposition: TBD Patient care spent time exceeds more than 35 minutes CARIN CHAO Aug 11, 2024 13:48
[2024-08-12] VITALS (10 sets, daily range): BP systolic 120–138; BP diastolic 54–81; PULSE 76–86; RESP 18–20; TEMP 97.6–98.7; O2SAT 94–96
[2024-08-12 04:57] LABS: HEMATOCRIT 46.5 % (36-48); MEAN CORPUSCULAR HEMOGLOBIN 25.4 pg (27.0-33.0); MEAN CORPUSCULAR HGB CONC 29.5 g/dL (32.0-36.0); MEAN CORPUSCULAR VOLUME 86.3 fL (79-99); RED BLOOD CELL COUNT(AUTO) 5.39 MIL/uL (4.00-5.50); RED CELL DISTRIBUTION WIDTH 17.5 % (11.0-15.5); WHITE BLOOD COUNT (AUTO) 6.2 K/uL (4.8-10.8)
[2024-08-12 05:21] LABS: CREATININE 0.5 mg/dL (0.5-1.0); MAGNESIUM 1.7 mg/dL (1.80-2.40); POTASSIUM 4.2 mmol/L (3.5-5.1)
[2024-08-12] MEDS ORDERED: MAGNESIUM 2GM PREMIX 50ML 50 ML IV SCH (12:00)
--- NOTE | 2024-08-12 12:13 | NUR ---
CM NOTE DISCUSSED CASE WITH be saenz and informed that pt nonfunded, and states can discontinue order for trilogy, also updated zakiya yung batch unloader of above and orders to dc niv entered.
--- NOTE | 2024-08-12 12:17 | NUR ---
cm note updated charge nurse that per md's no need for NIV, also, that pt can be provided o2 concentrator approved. for home if needed at [facility].
--- NOTE | 2024-08-12 15:44 | PN ---
[facility] PROGRESS NOTE Date Patient Seen: Aug 12, 2024 Time of Visit: 15:42 Supervising Physician: Dr. Gal Moncada Primary Care Physician: Outpatient Specialists: [ ] Inpatient Consults: ADÁN PROBLEM LIST: Acute hypercarbic, hypoxemic respiratory failure on admission Severe morbid obesity, BMI 85.8 Obesity hypoventilation syndrome Obstructive sleep apnea Tobacco use disorder Chest pain on admission Hypertension INTERVAL HISTORY: Patient was evaluated at bedside with her son present, who was advised by case management that the patient was trilogy we will cost over a 1000 dollars out of pocket as the patient was non funded. Patient states she was unable to make a pain med like this, it was also advised by case management that the hospital happens to have an oxygen concentrator available to be gifted to her. Patient was advised to discharge with the oxygen concentrator, she has inquired about making payments for the trilogy machine which I advised she could seek through her PCP were with case management, primary team is aware of the current situat ion and concentrator, dispo per primary. Patient was cleared once supplemental oxygen is arranged REVIEW OF SYSTEMS: 12 point ROS reviewed with patient. Pertinent positives mentioned above. Otherwise negative. PHYSICAL EXAM: GENERAL: alert, weak, awake oriented x 3 HEENT: EOMI, Sclera non icteric, moist mucosa NECK: Supple, no JVD, trachea midline LUNGS: decreased breath sounds bilaterally, no rhonchi, some wheezing HEART: Regular rate and rhythm. Normal S1 and S2, without murmurs ABD: Abdomen soft, nontender. Bowel sounds present EXT: No clubbing cyanosis or edema NEURO: Alert and oriented to person, follows commands Vital Signs (last 8hr) Date Time Temp Pulse Resp B/P (MAP) Pulse Ox O2 Delivery O2 Flow Rate FiO2 08/12/24 12:06 98.4 79 19 135/81 Nasal Cannula 2.0 08/12/24 11:48 78 20 08/12/24 08:42 94 Nasal Cannula* 2 28 08/12/24 08:11 98.8 80 18 138/79 94 Room Air LABS: Hematology Labs: Test 08/12/24 04:39 Range/Units White Blood Count 6.2 4.8-10.8 K/uL Red Blood Count 5.39 4.00-5.50 MIL/uL Hemoglobin 13.7 12.0-16.0 g/dL Hematocrit 46.5 36-48 % Mean Corpuscular Volume 86.3 79-99 fL Mean Corpuscular Hemoglobin 25.4 L 27.0-33.0 pg Mean Corpuscular Hemoglobin Concent 29.5 L 32.0-36.0 g/dL Red Cell Distribution Width 17.5 H 11.0-15.5 % Platelet Count 178 130-400 K/uL Mean Platelet Volume 10.2 7.5-10.5 fL Nucleated Red Blood Cells 0.0 0.0-0.19 % Chemistry Labs: Test 08/12/24 04:39 Range/Units Sodium Level 139 136-145 mmol/L Potassium Level 4.2 3.5-5.1 mmol/L Chloride Level 101 101-111 mmol/L Carbon Dioxide Level 36 H 21-32 mmol/L Blood Urea Nitrogen 9 7-18 mg/dL Creatinine 0.5 0.5-1.0 mg/dL Glomerular Filtration Rate Calc 112 >90 mL/min Random Glucose 100 70-105 mg/dL Total Calcium 8.4 L 8.5-10.1 mg/dL Magnesium Level 1.70 L 1.80-2.40 mg/dL DIAGNOSTICS / RADIOLOGY RESULTS: [ ] PLAN Arrangement for Non invasive ventilator support continue on oxygen continue with BiPAP intermittently continue IV antibiotics follow results from cultures NEURO: Minimize central acting medications as possible. Maintain fall precautions, adequate lighting during the day PULMONARY: Supplemental 02 as needed. Maintain aspiration precautions at all times CARDIOVASCULAR: Follow hemodynamics. Vital signs per facility protocol GI & NUTRITION: Continue with nutritional support. Continue stool softeners and laxatives as needed. KIDNEYS & ELECTROLYTES: Strict monitoring of intake, output and overall fluid balance. Avoid nephrotoxic medications to the extent possible. Medications to be dosed according to renal function. Monitor electrolytes and replace as needed ENDOCRINE: Maintain blood glucose between 100-180 at all times. Hypoglycemia protocol in place INFECTIOUS DISEASE: Trend temperature, WBC and procalcitonin level Follow cultures, deescalate antibiotics as soon as possible. Panculture if new onset fever ONCOLOGY/HEMATOLOGY/COAGULATION: Monitor for s/s of bleeding Monitor hemoglobin, coagulation studies as needed SKIN: Pressure ulcer prevention per facility protocol Specialty mattress ORTHO/REHAB: Continue PT/OT Prophylaxis: Continue GI and DVT prophylaxis Code Status: Full Resuscitation Disposition: TBD Patient care spent time exceeds more than 35 minutes CARIN CHAO Aug 12, 2024 15:44
[2024-08-12] MEDS ORDERED: AEC81 PO (16:00)
[2024-08-12] MEDS ORDERED: IPRA3AMP24 IH (16:00)
[2024-08-12] MEDS ORDERED: FAMO20TA8 PO (16:00)
--- NOTE | 2024-08-12 16:05 | DS ---
Discharge Summary Hospital Course Summary: DATE OF ADMISSION:[08/02/2024] DATE OF DISCHARGE:[08/12/2024] DISPOSITION:[Home] CONDITION:[Medically cleared] CONSULTANTS:[Industrial Technologist] FOLLOW UP APPOINTMENTS:[PCP 2 to 3 days. Industrial Technologist 2 to 3 days] PROCEDURES:[None] IMAGING: report attached to summary MICROBIOLOGY: report attached to summary ACTIVITY:[One-person assist] HOME MEDICATIONS: see [facility] NEW MEDICATIONS:[Aspirin 81 mg p.o. daily, famotidine 20 mg p.o. daily, ip ratropium/albuterol q.6 hours] EMERGENCY INSTRUCTIONS: The patient was instructed to present to the nearest Emergency departmentr or call 911 once their symptoms will return or worsen Personnel Specialist(s): Ms. Colón is a 53-year-old female that was seen and examined today on 08/02/24. Patient is a good historian of personal health however right now she is on a BiPAP and the following information was provided by her daughter Paula who is a limited historian of patient's past medical problems. Patient states that she came to the emergency department with a chief complaint of chest pain. Onset was today at 8:00 a.m. shortly after dropping her son off at school. Location is midsternal. Duration is on and off. Character is described as pressure. There was no alleviating factors. There was no aggravating factors. Patient reports associated shortness of breath. Today in the emergency department CBC unremarkable, urinalysis unremarkable. CO2 42. Chest x-ray shows bilateral infiltrates. Throughout the hospitalization patient was evaluated by the field clinical engineer and recommended trilogy but unfortunately it will cost over a 1000 dollars out of the pocket as the patient is non funded. Patient as inquired about making payments for the trilogy machine which I advised she could seek through her PCP. Patient will receive oxygen concentrator to be give to her today. Once patient will be able to get concentrated she is safe to go home. Patient was advised to follow up with PCP in 2 to 3 days. Follow up with field clinical engineer within 2 to 3 days as well. Procedure(s): REVIEW OF SYSTEMS: 12 point ROS reviewed with patient. Pertinent positives mentioned above. Otherwise negative. PHYSICAL EXAM: GENERAL: alert, weak, awake oriented x 3 HEENT: EOMI, Sclera non icteric, moist mucosa NECK: Supple, no JVD, trachea midline LUNGS: decreased breath sounds bilaterally, no rhonchi, some wheezing HEART: Regular rate and rhythm. Normal S1 and S2, without murmurs ABD: Abdomen soft, nontender. Bowel sounds present EXT: No clubbing cyanosis or edema NEURO: Alert and oriented to person, follows commands Assessment/Plan: ASSESSMENT: Acute on chronic hypercarbic/hypoxemic respiratory failure, POA Obesity hypoventilation syndrome, POA Obstructive sleep apnea, POA Chest pain, POA Pneumonia possibly due to Gram-negative and or Gram positive bacteria, POA Time spent arranging discharge: 31-60 minutes ATTESTATION BY PHYSICIAN I have seen and examined the patient. I reviewed the documentation, medical decision making, and treatment plan as noted by the mid-level provider above. I agree with the findings and plan of care. PASHA Lr MD, APRN Aug 12, 2024 16:05
--- NOTE | 2024-08-12 17:51 | NUR ---
cm note arranged for EMS for pt. approved by [facility] grace, spoke to ems amish and has received ems paperwork. will product picker pt when nurses call for pickup
--- NOTE | 2024-08-12 20:00 | NUR ---
DISCHARGE PATIENT HAS BEEN DISCHARGED HOME. PIV REMOVED. PRESSURE GAUZE AND TAPE APPLIED TO SITE. PATIENT AND SON AT BEDSIDE VERBALIZE UNDERSTANDING OF DISCHARGE PAPERWORK. PATIENT WENT WITH CONCENTRATOR. PENDING EMS. PATIENT STATE SHE LIVES 5 MINUTES AWAY, AND DOESN'T BELIEVE SHE WILL NEED EMS TO TRANSPORT. PATIENT EDUCATED ON THE RISKS OF NOT GOING EMS AND GOING IN HER OWN AUTOMOBILE. PATIENT STATE SHE UNDERSTANDS THE RISKS, BUT WOULD STILL LIKE TO GO HOME IN PRIVATE VEHICLE. PATIENT HAS SIGNED REFUSAL FOR EMS. HOUSE AND PRIMARY TEAM MADE AWARE OF REFUSAL FOR EMS. PATIENT WHEELED DOWN TO PRIVATE AUTOMOBILE, ACCOMPANIED BY FAMILY.
== END 2024-08-12 20:00 | disposition home or self-care (01) | DRG 177 ==
LOC: EDH 21:18 → EDHIP 21:19 → 4DH 08-04 16:20
PROVIDERS: ADMIT Internal Medicine; ATTEND Internal Medicine
PROC: 5A09457 Assistance with Respiratory Ventilation, 24-96 Consecutive Hours, Continuous Positive Airway Pressure (ICD-10-PCS; principal; 2024-08-02)
PROC: 5A09357 Assistance with Respiratory Ventilation, Less than 24 Consecutive Hours, Continuous Positive Airway Pressure (ICD-10-PCS; 2024-08-05)
DX: J15.69 Pneumonia due to other Gram-negative bacteria (principal); J96.21 Acute and chronic respiratory failure with hypoxia; J96.22 Acute and chronic respiratory failure with hypercapnia; E66.2 Morbid (severe) obesity with alveolar hypoventilation; Z68.45 Body mass index [BMI] 70 or greater, adult; E11.9 Type 2 diabetes mellitus without complications; I11.0 Hypertensive heart disease with heart failure; F17.210 Nicotine dependence, cigarettes, uncomplicated; J15.9 Unspecified bacterial pneumonia; I50.9 Heart failure, unspecified; E78.00 Pure hypercholesterolemia, unspecified; Z59.71 Insufficient health insurance coverage; Z51.5 Encounter for palliative care; Z79.82 Long term (current) use of aspirin; Z75.3 Unavailability and inaccessibility of health-care facilities; Z99.81 Dependence on supplemental oxygen
CPT/HCPCS: 36415; 36600; 71045; 80048; 80053; 81003; 82435; 82550; 82803; 82947; 83605; 83735; 83880; 84100; 84132; 84295; 84484; 85018; 85025; 85027; 87420; 87635; 87804; 87880; 93005; 93970; 94640; 94660; 94664; 94760; 96374; 96375; 99285; G0378; J0696; J1650; J1940; J2919; J3490; J7120